=== PATIENT | female | born 1950 | race Caucasian/White ===

== ENCOUNTER 2016-08-01 13:47 | Emergency (ER) | payer OTHER ==
[2016-08-01 13:57] VITALS: BP 118/53; PULSE 90; TEMP 97.9; BMI 23.6
--- NOTE | 2016-08-01 14:24 | PDOC ---
History of Present Illness - General Chief Complaint: Injury Stated Complaint: COUGH, RT ABD PAIN Time Seen by Provider: 08/01/16 14:01 - History of Present Illness Initial Comments: 08/01/16 14:17 CHIEF COMPLAINT: pain to R rib when coughing HISTORY OF PRESENT ILLNESS: 66 yo F with hx of panic attack, anxiety, and depression presents to ED with pain to right rib when coughing x 2 weeks. Patient states she was "getting up from sitting against the wall" two weeks ago when she "must not have seen something behind me, and I tripped and fell on my right side." Over the past two weeks she has had progessively worsening pain to her right side and pain whenever she coughs. Patient denies any fever, nausea, vomiting, diarrhea, chest pain, shortness of breath, or URI symptoms. No recent travel or sick contacts. PAST MEDICAL HISTORY: Denies past medical history FAMILY HISTORY: Denies SOCIAL HISTORY: Current smoker, 1/2 pack daily. 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 Denies illicit drug use. SURGICAL HISTORY: Denies ALLERGIES: gluten, percocet/oxycodone (itch) REVIEW OF SYSTEMS General/Constitutional: Denies fever or chills. Denies weakness, weight change. HEENT: Denies change in vision. Denies ear pain or discharge. Denies sore throat. Cardiovascular: Denies chest pain or shortness of breath. Respiratory: Denies cough, wheezing, or hemoptysis. Gastrointestinal: Denies nausea, vomiting, diarrhea or constipation. Denies rectal bleeding. Genitourinary: Denies dysuria, frequency, or change in urination. Musculoskeletal: Pain to lower R rib when coughing. Denies joint or muscle swelling or pain. Denies neck or back pain. Skin and breasts: Denies rash or easy bruising. Neurologic: Denies headache, vertigo, loss of consciousness, or loss of sensation. PHYSICAL EXAM General Appearance: Well-appearing, appropriately dressed. No apparent distress , no intoxication. HEENT: EOMI, PERRLA, normal ENT inspection, normal voice, TMs normal, pharynx normal. No conjunctival pallor. No photophobia, scleral icterus. Neck: Supple. Trachea midline. No tenderness, rigidity, carotid bruit, stridor , lymphadenopathy, or thyromegaly. Respiratory/Chest: Lungs CTAB. No shortness of breath, chest tenderness, respiratory distress, accessory muscle use. No crackles, rales, rhonchi, stridor , wheezing, dullness Cardiovascular: RRR. S1, S2. Musculoskeletal/Extremities: Minimal pain to R shoulder elicited with Neer/ Hawkin's tests. Normal inspection. FROM of all extremities, normal capillary refill. Pelvis Stable. No CVA tenderness. No tenderness to extremities, pedal edema, swelling, erythema or deformity. Integumentary: Appropriate color, dry, warm. 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 Fully oriented, alert. Appropriate mood/affect. Motor strength 5/5. No appreciable EOM palsy, facial droop or sensory deficit. Past History - Past Medical History Allergies/Adverse Reactions: Allergies Allergy/AdvReac Type Severity Reaction Status Date / Time gluten AdvReac Intermediate Verified 08/01/16 13:55 Home Medications: Ambulatory Orders Clonazepam [Klonopin] 1 mg PO DAILY 11/04/15 Mirtazapine [Remeron -] 45 mg PO HS 11/04/15 Venlafaxine HCl [Effexor -] 100 mg PO DAILY 11/04/15 Naproxen 250 mg PO BID #14 tablet 08/01/16 GI Disorders: Yes (CELIAC DISEASE) Psychiatric Problems: Yes (DEPRESSION,ANXIETY,PANIC ATTACKS) - Immunization History Immunization Up to Date: Yes - Psycho/Social/Smoking Cessation Hx Anxiety: Yes Suicidal Ideation: No Smoking Status: Yes Smoking History: Current every day smoker Have you smoked in the past 12 months: Yes Number of Cigarettes Smoked Daily: 10 Information on smoking cessation initiated: No Hx Alcohol Use: No Drug/Substance Use Hx: No *Physical Exam - Vital Signs Last Vital Signs Temp Pulse Resp BP Pulse Ox 97.9 F 90 20 118/53 97 08/01/16 13:55 08/01/16 13:55 08/01/16 13:55 08/01/16 13:55 08/01/16 13:55 ED Treatment Course - RADIOLOGY Radiology Studies Ordered: Category Date Time Status RIBS RIGHT SIDE [RAD] Stat Radiology 08/01/16 14:16 Ordered Medical Decision Making - Medical Decision Making 08/01/16 15:00 66 yo F with hx of anxiety, depression, panic attacks presents to fast track with pain to R rib when coughing s/p fall two weeks ago. -R rib x-ray Patient subsequently complains of right shoulder pain x "months", denies any trauma or specific incident prior to start of symptoms. Patient has full ROM shoulder, although minimal pain to distal elicited with Neer/Hawkin's test. Possible shoulder impingement. -Naproxen 250 po BID X-ray results: No acute pathology. Read by Kelton Ospina MD Advised patient to take medication as prescribed and follow up with ortho for further evaluation and management of rib and shoulder pain. Advised patient of signs and symptoms for return to ER; patient verbalized understanding and agrees to plan. *DC/Admit/Observation/Transfer Diagnosis at time of Disposition: Rib pain on right side Shoulder pain, acute Qualifiers: Laterality: right Qualified Code(s): M25.511 - Pain in right shoulder - Discharge Dispostion Disposition: HOME Condition at time of disposition: Stable Admit: No - Prescriptions Prescriptions: Naproxen 250 mg PO BID #14 tablet - Patient Instructions Printed Discharge Instructions: DI for Shoulder Pain Additional Instructions: Please take medication as prescribed and follow up with orthopedics on Thursday. If you experience any chest pain, shortness of breath, dizziness, headache, vomiting, fever, diarrhea, inability to move your arm or shoulder, or any new or worsening symptoms, please return to the ER.
== END 2016-08-01 15:16 | disposition home or self-care (01) ==
LOC: JERFT 13:47
DX: R07.81 Pleurodynia (principal); M25.511 Pain in right shoulder; W18.09XA Striking against other object with subsequent fall, initial encounter; Y93.89 Activity, other specified; Y92.89 Other specified places as the place of occurrence of the external cause; F41.9 Anxiety disorder, unspecified; F41.0 Panic disorder [episodic paroxysmal anxiety]
CPT/HCPCS: 71101-TC-RT; 99281-25

== ENCOUNTER 2017-11-15 00:13 | Emergency (ER) | payer OTHER, MEDICARE ==
[2017-11-15 00:32] VITALS: BP 139/114; PULSE 61; TEMP 97.4; BMI 22.1
--- NOTE | 2017-11-15 01:29 | PDOC ---
History of Present Illness - General Chief Complaint: Urinary Problem Stated Complaint: BLADDER ISSUE Time Seen by Provider: 11/15/17 01:29 - History of Present Illness Initial Comments: 11/15/17 02:05 Ms. Licona is a 67 yo female w/ pmh of panick attacks, anxiety, and depression who presents for evaluation of 2 month history of urinary incontinence. She reports she has had this intermittently over this time period and that she had an excessively large instance of this this evening. Ms. Licona further reports some non-specific pelvic pain that she says has been associated with this. Ms. Licona also endorses drinking several [place] iced teas tonight. The patient denies chest pain, shortness of breath, headache and dizziness. Denies fever, chills, nausea, vomit, diarrhea and constipation. Allergies: NKDA Past History - Past Medical History Allergies/Adverse Reactions: Allergies Allergy/AdvReac Type Severity Reaction Status Date / Time gluten AdvReac Intermediate Verified 11/15/17 00:27 Home Medications: Ambulatory Orders Clonazepam [Klonopin] 1 mg PO DAILY 11/04/15 Mirtazapine [Remeron -] 45 mg PO HS 11/04/15 Venlafaxine HCl [Effexor -] 100 mg PO DAILY 11/04/15 Naproxen 250 mg PO BID #14 tablet 08/01/16 GI Disorders: Yes (CELIAC DISEASE) Psychiatric Problems: Yes (DEPRESSION,ANXIETY,PANIC ATTACKS) - Immunization History Immunization Up to Date: Yes - Suicide/Smoking/Psychosocial Hx Smoking Status: Yes Smoking History: Never smoked Have you smoked in the past 12 months: No Number of Cigarettes Smoked Daily: 10 Information on smoking cessation initiated: No Hx Alcohol Use: No Drug/Substance Use Hx: No Review of Systems - Review of Systems Comments:: 11/15/17 03:06 Unable to obtain further due to intoxication symptoms. *Physical Exam - Vital Signs Last Vital Signs Temp Pulse Resp BP Pulse Ox 97.4 F L 61 19 139/114 98 11/15/17 00:27 11/15/17 00:27 11/15/17 00:27 11/15/17 00:27 11/15/17 00:27 - Physical Exam Comments: 11/15/17 03:07 GENERAL: +Patient slurring speech and acutely intoxicated. Otherwise awake, alert, and oriented x3, in no acute distress HEAD: No signs of trauma, normocephalic, atraumatic EYES: PERRLA, EOMI, sclera anicteric, conjunctiva clear ENT: Auricles normal inspection, hearing grossly normal, nares patent, oropharynx clear without exudates. Moist mucosa NECK: Normal ROM, supple, no lymphadenopathy, JVD, or masses LUNGS: No distress, speaks full sentences, clear to auscultation bilaterally HEART: Regular rate and rhythm, normal S1 and S2, no murmurs, rubs or gallops, peripheral pulses normal and equal bilaterally. ABDOMEN: Soft, nontender, normoactive bowel sounds. No guarding, no rebound. No masses EXTREMITIES: Normal inspection, Normal range of motion, no edema. No clubbing or cyanosis. NEUROLOGICAL: Cranial nerves II through XII grossly intact. Normal speech, normal gait, no focal sensorimotor deficits SKIN: Warm, Dry, normal turgor, no rashes or lesions noted. : +Fundal tenderness to palpation. No CMT, no adnexal tenderness. No blood noted in vaginal vault. ED Treatment Course - LABORATORY CBC & Chemistry Diagram: 11/15/17 03:00 11/15/17 03:00 Medical Decision Making - Medical Decision Making 11/15/17 04:17 Ms. Licona is a 67 yo female w/ pmh as described who presents for evaluation of urinary incontinence x2 months. Patient noted to be acutely intoxicated on presentation (confirmed on labs as below). No concern for acute process at this time however patient will be observed in ER until clinical sobriety appreciated. 11/15/17 05:20 ED Short Stay Obs order placed. 11/15/17 05:46 Patient noted to be at baseline by son. Gait steady, patient able to ambulate vigorously around ER. Discharging to home with urology follow-up. Laboratory Results - last 24 hr 11/15/17 11/15/17 11/15/17 02:41 03:00 03:00 WBC 4.2 RBC 4.19 Hgb 13.6 Hct 40.2 MCV 96.0 MCH 32.6 MCHC 33.9 RDW 12.7 Plt Count 223 MPV 7.8 Absolute Neuts (auto) 2.0 Neutrophils % 46.5 Lymphocytes % 40.7 H Monocytes % 9.2 Eosinophils % 2.8 Basophils % 0.8 Nucleated RBC % 0 Sodium 143 Potassium 3.8 Chloride 108 H Carbon Dioxide 30 Anion Gap 5 L BUN 13 Creatinine 1.1 H Creat Clearance w eGFR 49.54 Random Glucose 86 Calcium 7.8 L Total Bilirubin 0.3 AST 22 ALT 29 Alkaline Phosphatase 105 Total Protein 6.1 L Albumin 3.2 L Urine Color Straw Urine Appearance Clear Urine pH 6.0 Ur Specific Conde 1.002 Urine Protein Negative Urine Glucose (UA) Negative Urine Ketones Negative Urine Blood Negative Urine Nitrite Negative Urine Bilirubin Negative Urine Urobilinogen Negative Ur Leukocyte Esterase Negative Alcohol, Quantitative 199.6 H* *DC/Admit/Observation/Transfer Diagnosis at time of Disposition: Intoxication Incontinence Qualifiers: Incontinence type: urinary Urinary Incontinence type: unspecified incontinence Qualified Code(s): R32 - Unspecified urinary incontinence - Discharge Dispostion Disposition: HOME Decision to Admit order: Yes - Referrals Referrals: Justyn Riggs MD [Primary Care Provider] - Joey Campbell MD [Staff Physician] - - Patient Instructions Printed Discharge Instructions: DI for Urinary Incontinence Additional Instructions: Please follow-up with Urology later this week using provided contact information. Return to ER if any pain, fever, chills, or other concerning symptoms. - Post Discharge Activity
[2017-11-15 02:56] LABS: URINE APPEARANCE CLEAR; URINE BILIRUBIN NEGATIVE (<2.0 mg/dL); URINE COLOR STRAW; URINE GLUCOSE (UA) NEGATIVE (NEGATIVE); URINE KETONE NEGATIVE (NEGATIVE); URINE LEUK ESTERASE NEGATIVE (NEGATIVE); URINE NITRITE NEGATIVE (NEGATIVE); URINE PROTEIN NEGATIVE (NEGATIVE); URINE UROBILINOGEN NEGATIVE mg/dL (0.2-1.0)
[2017-11-15 03:11] LABS: BASO % 0.8 % (0-2.0); EOS % 2.8 % (0-4.5); HEMATOCRIT 40.2 % (32.4-45.2); HEMOGLOBIN 13.6 GM/dL (10.7-15.3); LYMPH % 40.7 % (8-40); MCH 32.6 pg (25.7-33.7); MCHC 33.9 g/dl (32.0-36.0); MEAN PLT VOLUME 7.8 fl (7.5-11.1); MONO % 9.2 % (3.8-10.2); NEUT % 46.5 % (42.8-82.8); PLATELET COUNT 223 K/MM3 (134-434); RBC 4.19 M/mm3 (3.60-5.2); RDW 12.7 % (11.6-15.6); WHITE BLOOD COUNT 4.2 K/mm3 (4.0-10.0)
[2017-11-15 03:32] LABS: ALBUMIN 3.2 g/dl (3.4-5.0); ALK PHOS 105 U/L (45-117); ANION GAP 5 (8-16); BILIRUBIN,TOTAL 0.3 mg/dL (0.2-1.0); BLOOD UREA NITROGEN 13 mg/dL (7-18); CALCIUM 7.8 mg/dL (8.5-10.1); CHLORIDE 108 mmol/L (98-107); CO2 30 mmol/L (21-32); CREATININE 1.1 mg/dL (0.55-1.02); GLUCOSE,RANDOM 86 mg/dL (74-106); POTASSIUM 3.8 mmol/L (3.5-5.1); SGOT/AST 22 U/L (15-37); SGPT/ALT 29 U/L (12-78); SODIUM 143 mmol/L (136-145); TOT PROT 6.1 g/dl (6.4-8.2)
--- NOTE | 2017-11-15 06:03 | PDOC ---
Attending Attestation - Resident Resident Name: Harsha Diez - ED Attending Attestation I have performed the following: I have examined & evaluated the patient, The case was reviewed & discussed with the resident, I agree w/resident's findings & plan, Exceptions are as noted - HPI HPI: 11/15/17 06:01 Patient is a 67 year old female with a significant past medical history of celiac disease, panic attacks, anxiety, and depression, who presents to the ED with complaints of urinary incontinence that began 2 months ago. Patient reports experiencing intermittent urinary incontinence as well as associated urinary frequency. Pt has had no change in severity of these symptoms tonight but presented to "get to the bottom of it." She reports going to see her PCP earlier this month but did not discuss these symptoms. Denies back pain, LE weakness or numbness. States she can feel toilet paper when she wipes. Denies trauma or falls. Patient admits to drinking alcohol prior to ED arrival. Pt notably cursing at staff members demanding that we figure out what's causing her urinary symptoms. Family states patient is currently at her baseline. Denies chest pain, Sob. Denies nausea, vomiting. Denies weakness/numbness. Denies fevers,chills. Denies dysuria, hematuria. Denies constipation, diarrhea. Denies any other symptoms. Allergies: Gluten. Social history: No smoking. Frequent etoh but won't quantify. No illicit drugs. Surgical history: None PMD: Dr. Yoel Riggs - Physicial Exam PE: 11/15/17 06:17 GENERAL: Awake, alert, and fully oriented, in no acute distress. +AOB HEAD: No signs of trauma EYES: PERRLA, EOMI, sclera anicteric, conjunctiva clear ENT: Auricles normal inspection, hearing grossly normal, nares patent, oropharynx clear without exudates. Moist mucosa NECK: Normal ROM, supple, no lymphadenopathy, JVD, or masses LUNGS: Breath sounds equal, clear to auscultation bilaterally. No wheezes, and no crackles HEART: Regular rate and rhythm, normal S1 and S2, no murmurs, rubs or gallops ABDOMEN: Soft, nontender, normoactive bowel sounds. No guarding, no rebound. No masses. No CVAT. EXTREMITIES: Normal range of motion, no edema. No clubbing or cyanosis. No cords, erythema, or tenderness NEUROLOGICAL: Normal speech, cranial nerves intact, negative pronator drift, 5/ 5 strength in all 4 extremities, normal sensation to light touch in all 4 extremities, normal cerebellar exam, normal gait, normal reflexes and tone SKIN: Warm, Dry, normal turgor, no rashes or lesions noted. - Medical Decision Making 11/15/17 03:18 67yo F presents to the ED with 2 months of intermittent urinary frequency and incontinence. Vitals initially with hypertension, on my repeat on exam, BP was 148/82. Exam unremarkable. Duration of sxs as well as stability make acute spinal cord pathology unlikely. Pt also has no back pain, LE weakness or sensory deficits. Reflexes wnl. Will check labs, UA, and allow pt to metabolize. 11/15/17 06:00 Pt awake, alert, ambulating in ED with steady gait. Appears clinically sober. Is cursing at staff for not "solving her problem." Pt had no episodes of incontinece during her 6 hour stay in the ED with multiple trips to the bathroom. Explained to patient that her work up including urinalysis was normal and that she must follow up with a urologist for further evaluation for her symptoms. She asked us to call her son so that he can pick her up. Called her son, who came to pick her up. Advised him to help her make an appointment with the urologist for work up. Confirmed that she was at her baseline mental status. Pt requesting DC home, son to drive her home. I discussed the physical exam findings, ancillary test results and final diagnoses with the patient. I answered all of the patient's questions. The patient felt comfortable with the discharge plan and treatment plan. The patient will call her primary care physician within 24 hours to arrange follow- up and will return to the Emergency Department with any new, persistent or worsening symptoms.
--- NOTE | 2017-11-17 07:16 | PDOC ---
Patient Follow-up (Call Back) - Post ED Follow - Up Disposition at time of original discharge: HOME Reason for Call Back: Abnwl. Microbiology (Urine culture preliminary shows lactose fermenting negative bacilli. colony count 20 to 30,000 CFU per mL. Patient currently on no antibiotics. UA was negative. Labs and vital signs within normal limits during ER visit. Will await final report.)
--- NOTE | 2017-11-18 07:32 | PDOC ---
Patient Follow-up (Call Back) - Post ED Follow - Up Disposition at time of original discharge: HOME Reason for Call Back: Abnwl. Microbiology ((+) urine culture. Sensitivity resulted. Left message for patient to call back.)
--- NOTE | 2017-11-18 07:39 | PDOC ---
Patient Follow-up (Call Back) - Post ED Follow - Up Disposition at time of original discharge: HOME Reason for Call Back: Abnwl. Microbiology Signs/Symptoms Improved: No - Disposition Rx Needed: Yes Additional Instructions/Notes: Patient states she does have sxs of UTI. Will send rx for keflex.
== END 2017-11-15 06:14 | disposition home or self-care (01) ==
LOC: JER 00:13 → UNDOADMOB 05:22 → JERBED 05:22 → JER 06:14
DX: F10.120 Alcohol abuse with intoxication, uncomplicated (principal); Y90.6 Blood alcohol level of 120-199 mg/100 ml; R32 Unspecified urinary incontinence; F41.0 Panic disorder [episodic paroxysmal anxiety]; F41.9 Anxiety disorder, unspecified; F32.9 Major depressive disorder, single episode, unspecified
CPT/HCPCS: 36415; 80053; 80307; 81003; 85025; 87086; 87186; 99282-25

== ENCOUNTER 2018-02-25 23:14 | Emergency (ER) | payer OTHER, MEDICARE ==
[2018-02-25 23:25] VITALS: BP 127/79; PULSE 71; TEMP 98; BMI 22.1
--- NOTE | 2018-02-25 23:26 | PDOC ---
History of Present Illness - General History Source: Patient, Family (Son.) Exam Limitations: No Limitations - History of Present Illness Initial Comments: 02/25/18 23:52 The patient is a 67 year old female, with a significant past medical history of panic attacks, anxiety, and depression, who presents to the emergency department s/p mechanical fall with, a laceration to the forehead. As per patient, she was on her way to bed when she felt dizzy, lost her balance, and fell hitting her head on the bedside table. She was able to ambulate without assistance s/p fall. The patient endorses drinking 1-2 drinks prior to her fall. She notes pain and bleeding to the affected area, prompting her visit to the ER. She denies any loss of consciousness, weakness, numbness, or trauma to the neck and extremities. She denies recent fevers or chills. She denies recent nausea, vomit, diarrhea or constipation. She denies recent dysuria, frequency, urgency or hematuria. She denies recent chest pain or shortness of breath. Allergies: Gluten. Past surgical history: None reported. Social history: Smoker (1/2 pack per day). Frequent drinking (every other day). Denies recreational drug use. Primary Care Physician: Dr. Jarred Riggs <Siobhan Chiu - Last Filed: 02/25/18 23:52> <Ericka Collazo - Last Filed: 02/26/18 04:12> - General Chief Complaint: Laceration Stated Complaint: FOREHEAD LACERATION Time Seen by Provider: 02/25/18 23:17 Past History <Siobhan Chiu - Last Filed: 02/25/18 23:52> - Past Medical History COPD: No GI Disorders: Yes (CELIAC DISEASE) Psychiatric Problems: Yes (DEPRESSION,ANXIETY,PANIC ATTACKS) Other medical history: ALCOHOLISM - Immunization History Immunization Up to Date: Yes - Suicide/Smoking/Psychosocial Hx Smoking Status: Yes Smoking History: Current every day smoker Have you smoked in the past 12 months: Yes Number of Cigarettes Smoked Daily: 20 Information on smoking cessation initiated: Yes 'Breaking Loose' booklet given: 02/25/18 Hx Alcohol Use: Yes Drug/Substance Use Hx: No Substance Use Type: Alcohol <Ericka Collazo - Last Filed: 02/26/18 04:12> - Past Medical History Allergies/Adverse Reactions: Allergies Allergy/AdvReac Type Severity Reaction Status Date / Time gluten AdvReac Intermediate Verified 11/15/17 00:27 Home Medications: Ambulatory Orders Clonazepam [Klonopin] 1 mg PO DAILY 11/04/15 Mirtazapine [Remeron -] 45 mg PO HS 11/04/15 Venlafaxine HCl [Effexor -] 100 mg PO DAILY 11/04/15 Naproxen 250 mg PO BID #14 tablet 08/01/16 Cephalexin Monohydrate [Keflex -] 500 mg PO BID #10 capsule 11/18/17 Review of Systems - Review of Systems Able to Perform ROS?: Yes Comments:: 02/25/18 23:52 CONSTITUTIONAL: Absent: fever, no chills, no fatigue EYES: Absent: visual changes ENT: Absent: ear pain, no sore throat CARDIOVASCULAR: Absent: chest pain, no palpitations RESPIRATORY: Absent: cough, no SOB GI: Absent: abdominal pain, no nausea, no vomiting, no constipation, no diarrhea GENITOURINARY: Absent: dysuria, no frequency, no hematuria MUSKULOSKELETAL: Absent: back pain, no arthralgia, no myalgia SKIN: Present: Laceration with pain to the forehead. Absent: rash NEURO: Present: Dizziness at the time of the fall. All Other Systems: Reviewed and Negative <Siobhan Chiu - Last Filed: 02/25/18 23:52> *Physical Exam - Vital Signs Last Vital Signs Temp Pulse Resp BP Pulse Ox 98 F 71 16 127/79 95 02/25/18 23:18 02/25/18 23:18 02/25/18 23:18 02/25/18 23:18 02/25/18 23:18 - Physical Exam Comments: 02/25/18 23:52 +GENERAL: Intoxicated with slight slurring of speech. The patient is awake, alert, and oriented, in no acute distress. +HEAD:4.5 linear vertical full thickness laceration of midline forehead with mild frontal tenderness. No other scalp tenderness or laceration. Remainder of facial exam normal without any other tenderness, edema, or deformity. EYES: Pupils 2 mm equal, round and reactive to light, extraocular movements intact, sclera anicteric, conjunctiva clear with no pallor. ENT: Ears normal, nares patent, oropharynx clear without exudates. Moist mucous membranes. NECK: Normal range of motion, supple without lymphadenopathy, JVD, or masses. LUNGS: Breath sounds equal, clear to auscultation bilaterally. No wheeze/ crackles. HEART: Regular rate and rhythm, normal S1 and S2 without murmur or rub. ABDOMEN: Soft/nontender/nondistended. BS wnl. No guarding or rebound. No palpable masses. No hepatosplenomegaly. EXTREMITIES: Normal range of motion, no edema. No clubbing or cyanosis. No cords, erythema, or tenderness. +NEUROLOGICAL: Mental status: Intoxicated. The patient is alert and oriented. Cranial nerves: Cranial nerves II through XII are intact Motor: The upper extremities are 5 over 5 in all muscle groups. The lower extremities are 5 over 5 in all muscle groups. No pronator drift. Sensation: Sensation is intact to light touch throughout. Cerebellar: Hkuimp-[id number] is normal in both upper extremities. Heel-knee- loving is normal in both lower extremities. Reflexes: 2+ and symmetric in the upper and lower extremities. PSYCH: Normal mood, normal affect. SKIN: Warm, Dry, normal turgor, no rashes or lesions noted. <Soibhan Chiu - Last Filed: 02/25/18 23:52> - Vital Signs Last Vital Signs Temp Pulse Resp BP Pulse Ox 98 F 71 16 127/79 95 02/25/18 23:18 02/25/18 23:18 02/25/18 23:18 02/25/18 23:18 02/25/18 23:18 <Ericka Collazo - Last Filed: 02/26/18 04:12> Procedures - Laceration/Wound Repair Frontal Wound Length: 2.6 to 5.0 cm Wound Explored: clean Wound's Depth, Shape: linear Irrigated w/ Saline: Yes Betadine Prep: No (Hibiclens/alcohol) Anesthesia: 1% Lidocaine Amount of Anesthetic (ccs): 2 Wound Debrided: none Wound Repaired With: Sutures Suture Size/Type: 6:0 Number of Sutures: 8 Layer Closure: No Sterile Dressing Applied: No Splint Applied: No Progress: Area vertical laceration in the mid forehead prepped using chlorhexidine/ ethanol solution and sterilely draped. Wound irrigated with 30 mL of sterile normal saline. 2 mL of 1% lidocaine infiltrated into the wound for local anesthesia. Wound edges were carefully apposed and wound closed with 8 interrupted sutures of 6-0 nylon. Bacitracin applied to the surface. Patient tolerated procedure well. <Ericka Collazo - Last Filed: 02/26/18 04:12> Progress Note - Progress Note Progress Note: Documentation has been prepared under my direction and personally reviewed by me in its entirety. I attest that this documented accurately reflects all work, treatment, procedures and medical decision making performed by me. <Ericka Collazo - Last Filed: 02/26/18 04:12> Medical Decision Making - Medical Decision Making As noted above, this 67-year-old woman with anxiety/depression presents with history of falling in her room as she was going to bed tonight just prior to presentation. Patient appears intoxicated on presentation and admits to having "1-2" drinks this evening (patient accompanied by her son, who explains that there was a small constitution party in the house to commemoration 50th anniversary of his parents wedding). No LOC noted. Patient complaining of pain in the area around the laceration. Exam as noted. Noncontrast CT of the head/facial bone/cervical spine performed to evaluate for acute injury. Interpretation by Imaging balance wheel motion inspector: No evidence of acute injury found. There was a small hypodensity in the deep white matter seen on head CT, potentially small vessel disease. Otherwise no fractures/contusion/bleed seen. Likewise, cervical spine study revealed degenerative changes without acute fracture/dislocation. Maxillofacial CT shows no evidence of acute fracture. There is trace gas adjacent to the left orbit, likely physiologic. Patient questioned regarding acute symptoms related to her left eye. Patient denies pain or any other abnormality related to her left eye. Repair of forehead laceration as noted above. Patient believes her most recent tetanus prophylaxis immunization was 7-10 years ago but would like a booster at this time. Boostrix IM administered. Patient discharged in the company of her son with instructions to keep her head elevated and to return to the ER if she experiences severe headache, nausea/ vomiting, lightheadedness. Meanwhile, she will keep the laceration as dry as possible for 2 days, then can wet the area briefly but no immersion until sutures out. Patient should have sutures removed in 5-7 days (patient will follow-up with her PMD, Dr. Riggs). The patient should return here or see Dr. Riggs if the wound appears red/swollen/ painful. <Ericka Collazo - Last Filed: 02/26/18 04:12> *DC/Admit/Observation/Transfer - Attestations Scribe Attestion: 02/25/18 23:53 Documentation prepared by Siobhan Chiu, acting as medical scheduler for Ericka Collazo MD. <Siobhan Chiu - Last Filed: 02/25/18 23:52> <Ericka Collazo - Last Filed: 02/26/18 04:12> Diagnosis at time of Disposition: Closed head injury Forehead laceration Qualifiers: Encounter type: initial encounter Qualified Code(s): S01.81XA - Laceration without foreign body of other part of head, initial encounter Forehead contusion Qualifiers: Encounter type: initial encounter Qualified Code(s): S00.83XA - Contusion of other part of head, initial encounter - Discharge Dispostion Disposition: HOME Condition at time of disposition: Stable - Referrals Referrals: Justyn Riggs MD [Primary Care Provider] - 1 week - Patient Instructions Printed Discharge Instructions: How to Care for a Laceration After Repair, DI for Closed Head Injury Additional Instructions: Keep head elevated as much as possible over the next 2 days Keep wound dry with bacitracin/Neosporin to surface daily After first 48 hours, can briefly wet area of the wound Return to ER immediately if you have severe headache/nausea/lightheadedness Return to ER if wound looks red/swollen or is more painful Tylenol as needed for pain for the next 2-3 days; can use Motrin/Aleve along with Tylenol Follow-up with Dr. Riggs or return here for suture removal 5-7 days - Post Discharge Activity
[2018-02-26] MEDS ORDERED: ACETAMINOPHEN 325 MG TABLET (FP) PO ONE (00:03)
[2018-02-26] MEDS ORDERED: ACETAMINOPHEN 325 MG TABLET (FP) ONE (00:03)
[2018-02-26] MEDS ORDERED: DIPHTH,PERTUSS(ACELL),TET 0.5 ML DISP.SYRIN IM ONE (01:45)
== END 2018-02-26 01:52 | disposition home or self-care (01) ==
LOC: FER 23:14 → SUPCPDRO 23:14 → FER 02-26 01:52
PROC: 0HQ1XZZ Repair Face Skin, External Approach (ICD-10-PCS; principal; 2018-02-25)
PROC: 3E0234Z Introduction of Serum, Toxoid and Vaccine into Muscle, Percutaneous Approach (ICD-10-PCS; 2018-02-25)
DX: S01.81XA Laceration without foreign body of other part of head, initial encounter (principal); S00.83XA Contusion of other part of head, initial encounter; W26.1XXA Contact with sword or dagger, initial encounter; Y93.89 Activity, other specified; Y92.003 Bedroom of unspecified non-institutional (private) residence as the place of occurrence of the external cause; F41.0 Panic disorder [episodic paroxysmal anxiety]; F41.9 Anxiety disorder, unspecified; F32.9 Major depressive disorder, single episode, unspecified; F17.210 Nicotine dependence, cigarettes, uncomplicated
CPT/HCPCS: 70450-TC; 70486-TC; 72125-TC; 90715; 99281-25

== ENCOUNTER 2018-03-04 12:38 | Emergency (ER) | payer OTHER, MEDICARE ==
[2018-03-04 12:43] VITALS: BP 141/87; PULSE 73; TEMP 98.1; BMI 21.9
--- NOTE | 2018-03-04 14:09 | PDOC ---
Suture Removal/Wound Check HPI - History of Present Illness Chief Complaint: Suture/Staple Removal(Here) Stated Complaint: SUTURE REMOVAL FOREHEAD Time Seen by Provider: 03/04/18 14:00 Past History - Past Medical History Allergies/Adverse Reactions: Allergies Allergy/AdvReac Type Severity Reaction Status Date / Time gluten AdvReac Intermediate Verified 03/04/18 12:39 Home Medications: Ambulatory Orders Clonazepam [Klonopin] 1 mg PO DAILY 11/04/15 Trazodone HCl 150 mg PO ASDIR 03/04/18 COPD: No CHF: No GI Disorders: Yes (CELIAC DISEASE) Psychiatric Problems: Yes (DEPRESSION,ANXIETY,PANIC ATTACKS) - Immunization History Immunization Up to Date: Yes - Suicide/Smoking/Psychosocial Hx Smoking Status: Yes Smoking History: Current every day smoker Have you smoked in the past 12 months: Yes Number of Cigarettes Smoked Daily: 10 Information on smoking cessation initiated: Yes 'Breaking Loose' booklet given: 03/04/18 Hx Alcohol Use: No Drug/Substance Use Hx: No Substance Use Type: Alcohol *Physical Exam - Vital Signs Last Vital Signs Temp Pulse Resp BP Pulse Ox 98.1 F 73 18 141/87 96 03/04/18 12:38 03/04/18 12:38 03/04/18 12:38 03/04/18 12:38 03/04/18 12:38 *DC/Admit/Observation/Transfer Diagnosis at time of Disposition: Visit for suture removal - Discharge Dispostion Disposition: HOME Condition at time of disposition: Improved Decision to Admit order: No - Referrals - Patient Instructions Printed Discharge Instructions: DI for Suture Removal - Post Discharge Activity
== END 2018-03-04 14:12 | disposition home or self-care (01) ==
LOC: FER 12:38
DX: Z48.02 Encounter for removal of sutures (principal)
CPT/HCPCS: 99281-25

== ENCOUNTER 2018-08-25 17:30 | Emergency (ER) | payer OTHER, MEDICARE ==
[2018-08-25 17:52] VITALS: BMI 21.4
--- NOTE | 2018-08-25 19:04 | PDOC ---
History of Present Illness - General Chief Complaint: Urinary Problem Stated Complaint: STOOLS UNCONTROL Time Seen by Provider: 08/25/18 18:11 History Source: Patient Exam Limitations: No Limitations - History of Present Illness Initial Comments: 08/25/18 18:38 68 yo female pmh anxiety, depression, intoxication and multiple ED visits for incontinence presents to the ED for incontinence. Pt states she has had an ongoing problem for over 1 year with regular loss of urine with cough and movement also admits to feeling the urge to urinate but is unable to make it to the bathroom. Pt states she has had large warren of urine more frequently recently. Pt saw Dr. Cantor in [facility] 4 months ago, did not mention her difficulty with incontinence but does admit to having a normal pelvic exam. Pt denies F/C/N/V, abdominal pain, vaginal pain/discharge, burning or blood on urination, CP, SOB or new back pain. Pt does admit to 1 year hx of bilateral lower back pain without weakness/numbness into lower ext, saddle anesthesia, incontinence or retention of stool, ambulates without difficulty however no imaging was done. Also, pt was referred to Urology for similar s/s however has not f/u. Past History - Past Medical History Allergies/Adverse Reactions: Allergies Allergy/AdvReac Type Severity Reaction Status Date / Time gluten AdvReac Intermediate Verified 08/25/18 17:50 Home Medications: Ambulatory Orders Clonazepam [Klonopin] 1 mg PO BID 11/04/15 Trazodone HCl 100 mg PO HS 03/04/18 COPD: No CHF: No GI Disorders: Yes (CELIAC DISEASE) Psychiatric Problems: Yes (DEPRESSION,ANXIETY,PANIC ATTACKS) - Immunization History Immunization Up to Date: Yes - Suicide/Smoking/Psychosocial Hx Smoking Status: Yes Smoking History: Never smoked Have you smoked in the past 12 months: Yes Number of Cigarettes Smoked Daily: 10 Information on smoking cessation initiated: No 'Breaking Loose' booklet given: 03/04/18 Hx Alcohol Use: No Drug/Substance Use Hx: No Substance Use Type: Alcohol Review of Systems - Review of Systems Constitutional: No: Chills, Fever Respiratory: No: Shortness of Breath Cardiac (ROS): No: Chest Pain, Edema ABD/GI: No: Constipated, Diarrhea, Nausea, Vomiting : Yes: Incontinence. No: Burning, Dysuria, Discharge, Frequency, Flank Pain, Hematuria, Pain Musculoskeletal: Yes: Back Pain (over 1 year , no imaging done). No: Muscle Weakness Neurological: No: Headache, Numbness, Paresthesia *Physical Exam - Vital Signs Last Vital Signs Temp Pulse Resp BP Pulse Ox 97.9 F 67 17 126/73 95 08/25/18 17:50 08/25/18 17:50 08/25/18 17:50 08/25/18 17:50 08/25/18 17:50 - Physical Exam General Appearance: Yes: Nourished, Appropriately Dressed. No: Apparent Distress HEENT: positive: EOMI, LISA, Normal Voice, Hearing Grossly Normal Neck: positive: Supple. negative: Tender, Carotid bruit, Tender midline Respiratory/Chest: positive: Lungs Clear, Normal Breath Sounds. negative: Accessory Muscle Use, Rapid RR, Crackles, Rales, Rhonchi, Stridor, Wheezing Cardiovascular: positive: Regular Rhythm, Regular Rate, S1, S2. negative: Edema , JVD, Murmur Vascular Pulses: Dorsalis-Pedis (R): 4+, Doralis-Pedis (L): 4+ Gastrointestinal/Abdominal: positive: Flat, Soft. negative: Pulsatile Mass, Guarding, Rebound, Tenderness Rectal Exam: positive: normal exam, normal rectal tone. negative: hemorrhoids Musculoskeletal: positive: Normal Inspection. negative: CVA Tenderness Extremity: positive: Normal Capillary Refill, Normal Inspection, Normal Range of Motion, Pelvis Stable Integumentary: positive: Normal Color, Dry, Warm. negative: Petechiae, Rash, Ecchymosis, Bruising Neurologic: positive: handkerchief cutter II-XII NML intact, Fully Oriented, Alert, Normal Mood/ Affect, Normal Response, Motor Strength 5/5. negative: Numbness, Sensory Deficit, Confused, Disoriented Deep Tendon Reflexes: Ankle (L): 2+, Ankle (R): 2+, Knee (L): 2+, Knee (R): 2+ ED Treatment Course - LABORATORY CBC & Chemistry Diagram: 08/25/18 20:29 08/25/18 20:29 Medical Decision Making - Medical Decision Making 08/25/18 19:49 68 yo female pmh anxiety, depression, intoxication and multiple ED visits for incontinence presents to the ED for incontinence. Pt states she has had an ongoing problem for over 1 year with regular loss of urine with cough and movement also admits to feeling the urge to urinate but is unable to make it to the bathroom. Pt states she has had large warren of urine more frequently recently. Pt saw Dr. Cantor in [facility] 4 months ago, did not mention her difficulty with incontinence but does admit to having a normal pelvic exam. Pt denies F/C/N/V, abdominal pain, vaginal pain/discharge, burning or blood on urination, CP, SOB or new back pain. Pt does admit to 1 year hx of bilateral lower back pain without weakness/numbness into lower ext, saddle anesthesia, incontinence or retention of stool, ambulates without difficulty however no imaging was done. Also, pt was referred to Urology for similar s/s however has not f/u. Chart review from 11/15/2017 shows very similar complaint without imaging at the time, Urology f/u given but not done AOX3, NAD, non toxic appearing See physical exam No neurological deficits appreciated on exam, no risk factors for epidural abscess however, due to back pain without imaging and complaints of complete incontinence, MRI with contrast ordered to r/o spinal cord impingement or epidural abscess Vitals wnl CBC and CMP wnl UA shows minor elevation LE, will dc with a call back for antibiotics if cultures are positive MRI negative for spinal cord impingement or epidural abscess but shows likely arthritic changes Pt is stable and safe for DC home F/U with OB and Urology given. Pt understands plan *DC/Admit/Observation/Transfer Diagnosis at time of Disposition: Incontinence Qualifiers: Incontinence type: urinary Urinary Incontinence type: unspecified incontinence Qualified Code(s): R32 - Unspecified urinary incontinence - Discharge Dispostion Disposition: HOME Condition at time of disposition: Stable Decision to Admit order: No - Referrals Referrals: Justyn Riggs MD [Primary Care Provider] - Teddy Valdivia MD [Staff Physician] - Jyoti Cantor MD [Staff Physician] - - Patient Instructions Printed Discharge Instructions: DI for Urinary Incontinence Additional Instructions: Please see your Primary Doctor within the next 48 hours. See your [facility] Doctor and make an appointment with Urology as soon as possible for your complaints of incontinence. Return to the ER for new or concerning symptoms including but not limited to: high fevers, numbness/tingling or weakness into the legs, severe back pain. Your urine culture results are pending, if they return positive, you will receive a call and will get a prescription for antibiotics. Thank you - Post Discharge Activity
--- NOTE | 2018-08-25 19:29 | PDOC ---
Attending Attestation - HPI HPI: 08/25/18 19:37 The patient is a 68 year old female with a significant PMH of anxiety, depression, and EtOH abuse who presents to the emergency department with back pain and urinary incontinence for the past year. Patient states she gets the urge to use the bathroom, but as soon as she tried to go to the bathroom she experiences incontinence. Patient notes that today she had a large amount of urinary incontinence prompting her to come to the ER. Patient follows with an [facility], Dr. Cantor, but she did not mention these symptoms to her. Patient denies any pelvic pain, abdominal pain, chest pain, shortness of breath , headache and dizziness. Denies fever, chills, nausea, vomit, diarrhea and constipation. Denies dysuria, frequency, urgency and hematuria. Allergies: NKA Past surgical history: None reported. Social history: No reported drug or cigarette use. EtOH abuse. PCP: Dr. Justyn Riggs - Physicial Exam PE: 08/25/18 20:13 Agree with resident's exam. <Aracely Nunes - Last Filed: 08/25/18 20:13> - Resident Resident Name: Campbell Benavidez - ED Attending Attestation I have performed the following: I have examined & evaluated the patient, The case was reviewed & discussed with the resident, I agree w/resident's findings & plan - Medical Decision Making 08/25/18 20:33 68-year-old female complaining of worsening urinary incontinence with accompanying low back pain Patient has not had evaluation of her back pain in the past She denies trauma or fever Due to worsening symptoms and lack of previous imaging and MRI of the lumbar spine has been ordered to rule out cauda equina syndrome versus unlikely epidural abscess Patient is otherwise motor intact <Padmini Chacon - Last Filed: 08/25/18 20:34>
[2018-08-25 20:44] LABS: HEMATOCRIT 41.6 % (32.4-45.2); HEMOGLOBIN 14.3 GM/dL (10.7-15.3); MCH 33.4 pg (25.7-33.7); MCHC 34.3 g/dl (32.0-36.0); MEAN CELL VOLUME 97.3 fl (80-96); MEAN PLT VOLUME 7.7 fl (7.5-11.1); PLATELET COUNT 250 K/MM3 (134-434); RBC 4.28 M/mm3 (3.60-5.2); RDW 13.3 % (11.6-15.6); WHITE BLOOD COUNT 5.1 K/mm3 (4.0-10.0)
[2018-08-25 21:17] LABS: ALBUMIN 3.3 g/dl (3.4-5.0); ALK PHOS 117 U/L (45-117); ANION GAP 8 MMOL/L (8-16); BILIRUBIN,TOTAL 0.3 mg/dL (0.2-1); BLOOD UREA NITROGEN 12 mg/dL (7-18); CALCIUM 8.2 mg/dL (8.5-10.1); CHLORIDE 111 mmol/L (98-107); CO2 24 mmol/L (21-32); CREATININE 0.8 mg/dL (0.55-1.3); GLUCOSE,RANDOM 91 mg/dL (74-106); SGOT/AST 16 U/L (15-37); SGPT/ALT 26 U/L (13-61); SODIUM 143 mmol/L (136-145); TOT PROT 6.4 g/dl (6.4-8.2)
[2018-08-25 22:02] LABS: EPI CELLS 3.7 /HPF (0-5); URINE APPEARANCE CLEAR; URINE BACTERIA 288.2 /hpf (NEGATIVE); URINE BILIRUBIN NEGATIVE (NEGATIVE); URINE CASTS 1 /hpf (0-8); URINE COLOR YELLOW; URINE GLUCOSE (UA) NEGATIVE (NEGATIVE); URINE KETONE NEGATIVE (NEGATIVE); URINE LEUK ESTERASE 1+ (NEGATIVE); URINE NITRITE NEGATIVE (NEGATIVE); URINE PROTEIN NEGATIVE (NEGATIVE); URINE RBC 1 /hpf (0-4); URINE UROBILINOGEN 0.2 mg/dL (0.2-1.0); URINE WBC 16 /hpf (0-5)
[2018-08-25 23:06] VITALS: BP 130/68; PULSE 72; TEMP 98.1
== END 2018-08-25 23:26 | disposition home or self-care (01) ==
LOC: JER 17:30
DX: R32 Unspecified urinary incontinence (principal); F41.8 Other specified anxiety disorders
CPT/HCPCS: 36415; 72158-TC; 80053; 81003; 85027; 87086; 87186; 99283-25

== ENCOUNTER → 2019-01-31 | Day surgery (SDC) | payer OTHER, MEDICARE ==
--- NOTE | 2019-02-01 16:36 | PATH ---
Cytology Non-Gynecological Report Patient Name: RHONA DIAZ [facility]. Rec. #: [id number] /Age/Gender: 1950 (Age: 68) / F Account: [id number] Location: RADIOLOGY INTER Taken: 01/31/2019 Received: 01/31/2019 Reported: 02/01/2019 Physicians: Kieran Mchugh M.D. Specimen(s) Received THYROID RIGHT LOBE FNA Clinical History Right lobe nodule, 1.32 x 1.3 x 1.52 cm Final Diagnosis THYROID, RIGHT LOBE, FINE NEEDLE ASPIRATION: SATISFACTORY FOR EVALUATION. BETHESDA CLASS II: BENIGN. CYTOLOGIC FINDINGS ARE CONSISTENT WITH A BENIGN FOLLICULAR NODULE. SMALL FOLLICULAR CELLS AND COLLOID PRESENT. Electronically Signed Saritha Grace M.D. Gross Description Received are eight direct smears, four of which are air-dried and Diff-Quik stained, and four of which are alcohol fixed and Pap stained. Also received is 20 ml of bloody formalin from which one cellblock is prepared.
== END | disposition home or self-care (01) ==
LOC: JRADIR 09:04
PROVIDERS: ATTEND Internal Medicine
PROC: 0G9H3ZX Drainage of Right Thyroid Gland Lobe, Percutaneous Approach, Diagnostic (ICD-10-PCS; principal; 2019-01-31)
DX: E04.1 Nontoxic single thyroid nodule (principal)
CPT/HCPCS: 76942; 88173; 88305-TC

== ENCOUNTER → 2019-02-09 | Day surgery (SDC) | payer OTHER, MEDICARE ==
--- NOTE | 2019-02-14 15:04 | PATH ---
Cytology Non-Gynecological Report Patient Name: RHONA DIAZ [facility]. Rec. #: [id number] /Age/Gender: 1950 (Age: 68) / F Account: [id number] Location: RADIOLOGY INTER Taken: 02/09/2019 Received: 02/09/2019 Reported: 02/14/2019 Physicians: Kieran Mchugh, KAMILLE Specimen(s) Received RIGHT LOBE THYROID FNA Clinical History Thyroid nodule Final Diagnosis THYROID, RIGHT, FINE NEEDLE ASPIRATION: SATISFACTORY FOR EVALUATION BETHESDA CLASS II: BENIGN BENIGN FOLLICULAR CELLS, ABUNDANT COLLOID, AND MACROPHAGES PRESENT. Electronically Signed Desiree Heredia M.D. Gross Description Received are eight direct smears, four of which are air-dried and Diff-Quik stained, and four of which are alcohol fixed and Pap stained. Also received is 20 ml of bloody formalin from which one cellblock is prepared.
== END | disposition home or self-care (01) ==
LOC: JRADIR 09:38
PROVIDERS: ATTEND Internal Medicine
PROC: 0GBH3ZX Excision of Right Thyroid Gland Lobe, Percutaneous Approach, Diagnostic (ICD-10-PCS; principal; 2019-02-09)
DX: E04.1 Nontoxic single thyroid nodule (principal)
CPT/HCPCS: 76942; 88173; 88305-TC

== ENCOUNTER 2020-08-04 07:31 | Inpatient (IN) | payer OTHER ==
[2020-08-04] MEDS ORDERED: DEXAMETHASONE SOD PHOSPHATE 4 MG/1 ML VIAL IVPUSH ONE (08:15)
[2020-08-04] MEDS ORDERED: ALBUTEROL SO4 2.5/IPRATROPIUM 0.5 INH SOL 3 ML VIAL.NEB. NEB ONE ×2 (08:15→09:58)
[2020-08-04 09:05] LABS: BASO % 1.1 % (0-2.0); EOS % 0.6 % (0-4.5); HEMATOCRIT 44.4 % (32.4-45.2); LYMPH % 13.5 % (8-40); MCH 31.9 pg (25.7-33.7); MCHC 33.9 g/dl (32.0-36.0); MEAN CELL VOLUME 94.1 fl (80-96); MEAN PLT VOLUME 8.6 fl (7.5-11.1); NEUT % 77.8 % (42.8-82.8); PLATELET COUNT 217 K/MM3 (134-434); RBC 4.71 M/mm3 (3.60-5.2); RDW 13.5 % (11.6-15.6); WHITE BLOOD COUNT 2.7 K/mm3 (4.0-10.0)
[2020-08-04 09:11] LABS: INR 0.96 (0.83-1.09); PROTHROMBIN TIME (PATIENT) 11.8 SEC (9.7-13.0)
[2020-08-04 09:14] LABS: ACTIVATED PTT 28.5 SECONDS (25.2-36.5); VENOUS BASE EXCESS -0.6 mmol/L (-2-2); VENOUS O2 SATURATION 26.9 % (70-80); VENOUS PH 7.34 (7.310-7.410)
[2020-08-04] MEDS ORDERED: CEFTRIAXONE 1,000 MG in DEXTROSE 5%-WATER - 50 ML IVPB ONE (09:39)
[2020-08-04] MEDS ORDERED: AZITHROMYCIN IVPB 500 MG in DEXTROSE 5%-WATER - 250 ML IVPB ONE (09:39)
[2020-08-04 09:49] LABS: CHLORIDE 105 mmol/L (98-107); POTASSIUM 4.3 mmol/L (3.5-5.1); SODIUM 137 mmol/L (136-145)
[2020-08-04 09:52] LABS: ANION GAP 4 MMOL/L (8-16); BLOOD UREA NITROGEN 19.1 mg/dL (7-18); CO2 28 mmol/L (21-32)
[2020-08-04 09:53] LABS: ALBUMIN 3.6 g/dl (3.4-5.0); CALCIUM 8.7 mg/dL (8.5-10.1); GLUCOSE,RANDOM 75 mg/dL (74-106)
[2020-08-04 09:55] LABS: BILIRUBIN,DIRECT 0.2 mg/dL (0.0-0.2); SGOT/AST 31 U/L (15-37); SGPT/ALT 23 U/L (13-61)
[2020-08-04 09:56] LABS: BILIRUBIN,TOTAL 0.5 mg/dL (0.2-1); LDH 319 U/L (84-246)
[2020-08-04 09:57] LABS: ALK PHOS 129 U/L (45-117)
[2020-08-04] MEDS ORDERED: AZITHROMYCIN IVPB 500 MG/250 ML BAG IVPB ONE (09:58)
[2020-08-04] MEDS ORDERED: CEFTRIAXONE 1 GM/50 ML BAG ONE (09:58)
[2020-08-04] MEDS ORDERED: DEXAMETHASONE SOD PHOSPHATE 4 MG/1 ML VIAL ONE (09:58)
[2020-08-04 10:42] LABS: PH,URINE 5.5 (5.0-8.0); URINE APPEARANCE Cloudy; URINE BILIRUBIN Negative (NEGATIVE); URINE COLOR Yellow; URINE GLUCOSE (UA) Negative (NEGATIVE); URINE KETONE Negative (NEGATIVE); URINE LEUK ESTERASE Trace (NEGATIVE); URINE NITRITE Positive (NEGATIVE); URINE PROTEIN Trace (NEGATIVE); URINE UROBILINOGEN 0.2 mg/dL (0.2-1.0)
[2020-08-04 10:44] LABS: EPI CELLS 16.8 /uL (0-25.1); HYALINE CASTS 15.18 /uL (0-3.1); URINE RBC 14.3 /uL (0-23.9); URINE WBC 351.1 /uL (0-25.8)
[2020-08-04] MEDS ORDERED: ALBUTEROL SO4 HFA INHALER IH PRN (13:17)
[2020-08-04] MEDS ORDERED: ACETAMINOPHEN 325 MG TABLET (FP) PO PRN (13:18)
[2020-08-04] MEDS ORDERED: MELATONIN 5 MG TABLETS PO ONE (22:02)
[2020-08-04] MEDS: FAMOTIDINE 20 MG/50 ML IVPB 20 MG/50 ML MG IVPB SCH (23:03)
[2020-08-04] MEDS: ASCORBIC ACID 500 MG TABLET (FP) PO SCH (23:03)
[2020-08-04 23:15] VITALS: BMI 21.6
[2020-08-05 07:59] LABS: BASO % 0.5 % (0-2.0); HEMATOCRIT 38.2 % (32.4-45.2); HEMOGLOBIN 13.3 GM/dL (10.7-15.3); LYMPH % 7.8 % (8-40); MCH 32.3 pg (25.7-33.7); MCHC 34.9 g/dl (32.0-36.0); MEAN CELL VOLUME 92.5 fl (80-96); MEAN PLT VOLUME 8.4 fl (7.5-11.1); MONO % 7.9 % (3.8-10.2); NEUT % 83.8 % (42.8-82.8); PLATELET COUNT 213 K/MM3 (134-434); RBC 4.13 M/mm3 (3.60-5.2); RDW 13.4 % (11.6-15.6); WHITE BLOOD COUNT 4.3 K/mm3 (4.0-10.0)
[2020-08-05 08:18] LABS: CALCIUM 8.8 mg/dL (8.5-10.1)
[2020-08-05 08:19] LABS: BLOOD UREA NITROGEN 22.2 mg/dL (7-18)
[2020-08-05 08:23] LABS: BILIRUBIN,TOTAL 0.4 mg/dL (0.2-1); TOT PROT 6.2 g/dl (6.4-8.2)
[2020-08-05 08:29] LABS: CREATININE 0.8 mg/dL (0.55-1.3)
[2020-08-05] MEDS ORDERED: PT OWN MED DRAWER 7, Y5N ONE (09:48)
[2020-08-05] MEDS: ASCORBIC ACID 500 MG TABLET (FP) PO SCH ×2 (09:53→22:27)
[2020-08-05] MEDS: CHOLECALCIFEROL (VIT D3) 5000 UNITS (125 MCG) CAP PO SCH (09:53)
[2020-08-05] MEDS: ZINC SULFATE 220 MG CAPSULE (FP) PO SCH (09:53)
[2020-08-05] MEDS: clonazePAM 0.5 MG TABLET PO PRN (09:54)
[2020-08-05] MEDS: FAMOTIDINE 20 MG/50 ML IVPB 20 MG/50 ML MG IVPB SCH ×2 (09:54→22:26)
[2020-08-05] MEDS: ENOXAPARIN NA (PORCINE) 40 MG/0.4 ML DISP.SYRIN SQ SCH (09:56)
[2020-08-05] MEDS: DEXAMETHASONE SOD PHOSPHATE 4 MG/1 ML VIAL IVPUSH SCH (09:56)
[2020-08-05] MEDS ORDERED: CEFTRIAXONE 1 GM in DEXTROSE 5%-WATER - 50 ML IVPB SCH (10:45)
[2020-08-05] MEDS ORDERED: DEXTROSE 5%-WATER - 50 ML IVPB ONE (11:16)
[2020-08-05] MEDS ORDERED: cefTRIAXone SODIUM 1 GM VIAL ONE (11:16)
[2020-08-05] MEDS: CEFTRIAXONE 1 GM in DEXTROSE 5%-WATER - 50 ML IVPB SCH (11:41)
[2020-08-05] MEDS ORDERED: REMDESIVIR 200 MG in SODIUM CHLORIDE 210 ML IVPB ONE (14:00)
[2020-08-05] MEDS: BUDESONIDE/FORMETEROL FUMARATE 160/4.5 mcg INHALER IH SCH ×2 (14:35→22:26)
[2020-08-06] MEDS ORDERED: MELATONIN 5 MG TABLETS PO ONE (00:03)
[2020-08-06 07:47] LABS: HEMATOCRIT 35.5 % (32.4-45.2); HEMOGLOBIN 12.5 GM/dL (10.7-15.3); MCH 33.4 pg (25.7-33.7); MCHC 35.3 g/dl (32.0-36.0); MEAN CELL VOLUME 94.5 fl (80-96); MEAN PLT VOLUME 8.5 fl (7.5-11.1); PLATELET COUNT 212 K/MM3 (134-434); RBC 3.76 M/mm3 (3.60-5.2); RDW 13.4 % (11.6-15.6); WHITE BLOOD COUNT 5.9 K/mm3 (4.0-10.0)
[2020-08-06 07:58] LABS: POTASSIUM 4.5 mmol/L (3.5-5.1)
[2020-08-06 08:02] LABS: CALCIUM 8.6 mg/dL (8.5-10.1)
[2020-08-06 08:03] LABS: BLOOD UREA NITROGEN 26.2 mg/dL (7-18)
[2020-08-06 08:06] LABS: CREATININE 0.8 mg/dL (0.55-1.3)
[2020-08-06 08:08] LABS: BILIRUBIN,TOTAL 0.4 mg/dL (0.2-1)
[2020-08-06] MEDS ORDERED: DEXTROSE 5%-WATER - 50 ML IVPB ONE (09:14)
[2020-08-06] MEDS ORDERED: cefTRIAXone SODIUM 1 GM VIAL ONE (09:14)
[2020-08-06] MEDS: ENOXAPARIN NA (PORCINE) 40 MG/0.4 ML DISP.SYRIN SQ SCH (09:22)
[2020-08-06] MEDS: CEFTRIAXONE 1 GM in DEXTROSE 5%-WATER - 50 ML IVPB SCH (09:22)
[2020-08-06] MEDS: ASCORBIC ACID 500 MG TABLET (FP) PO SCH ×2 (09:23→21:20)
[2020-08-06] MEDS: DEXAMETHASONE SOD PHOSPHATE 4 MG/1 ML VIAL IVPUSH SCH (09:23)
[2020-08-06] MEDS: ZINC SULFATE 220 MG CAPSULE (FP) PO SCH (09:23)
[2020-08-06] MEDS: FAMOTIDINE 20 MG/50 ML IVPB 20 MG/50 ML MG IVPB SCH ×2 (09:29→21:20)
[2020-08-06] MEDS: BUDESONIDE/FORMETEROL FUMARATE 160/4.5 mcg INHALER IH SCH ×2 (09:30→21:21)
[2020-08-06] MEDS: REMDESIVIR 100 MG in SODIUM CHLORIDE 230 ML IVPB SCH (10:34)
[2020-08-06] MEDS: clonazePAM 0.5 MG TABLET PO PRN (10:34)
[2020-08-06] MEDS ORDERED: PT OWN MED DRAWER 7, Y5N ONE (11:31)
[2020-08-06] MEDS: CHOLECALCIFEROL (VIT D3) 5000 UNITS (125 MCG) CAP PO SCH (13:09)
[2020-08-06] MEDS: traZODone HCL 50 MG TABLET (FP) PO SCH (21:20)
[2020-08-07] MEDS ORDERED: PT OWN MED DRAWER 7, Y5N ONE (09:01)
[2020-08-07] MEDS ORDERED: DEXTROSE 5%-WATER - 50 ML IVPB ONE (09:02)
[2020-08-07] MEDS ORDERED: cefTRIAXone SODIUM 1 GM VIAL ONE (09:02)
[2020-08-07] MEDS: ENOXAPARIN NA (PORCINE) 40 MG/0.4 ML DISP.SYRIN SQ SCH (09:11)
[2020-08-07] MEDS: ASCORBIC ACID 500 MG TABLET (FP) PO SCH ×2 (09:11→21:21)
[2020-08-07] MEDS: ZINC SULFATE 220 MG CAPSULE (FP) PO SCH (09:11)
[2020-08-07] MEDS: CHOLECALCIFEROL (VIT D3) 5000 UNITS (125 MCG) CAP PO SCH (09:11)
[2020-08-07] MEDS: CEFTRIAXONE 1 GM in DEXTROSE 5%-WATER - 50 ML IVPB SCH (09:11)
[2020-08-07] MEDS: FAMOTIDINE 20 MG/50 ML IVPB 20 MG/50 ML MG IVPB SCH ×2 (10:15→21:20)
[2020-08-07] MEDS: DEXAMETHASONE SOD PHOSPHATE 4 MG/1 ML VIAL IVPUSH SCH (10:16)
[2020-08-07] MEDS: BUDESONIDE/FORMETEROL FUMARATE 160/4.5 mcg INHALER IH SCH ×2 (10:17→21:21)
[2020-08-07] MEDS: REMDESIVIR 100 MG in SODIUM CHLORIDE 230 ML IVPB SCH (11:59)
[2020-08-07] MEDS: clonazePAM 0.5 MG TABLET PO PRN (16:05)
[2020-08-07] MEDS: traZODone HCL 50 MG TABLET (FP) PO SCH (21:20)
[2020-08-08] MEDS ORDERED: cefTRIAXone SODIUM 1 GM VIAL ONE (08:36)
[2020-08-08] MEDS ORDERED: DEXTROSE 5%-WATER - 50 ML IVPB ONE (08:36)
[2020-08-08] MEDS: CEFTRIAXONE 1 GM in DEXTROSE 5%-WATER - 50 ML IVPB SCH (08:41)
[2020-08-08 09:14] LABS: HEMATOCRIT 39.5 % (32.4-45.2); HEMOGLOBIN 13.6 GM/dL (10.7-15.3); MCH 31.8 pg (25.7-33.7); MCHC 34.3 g/dl (32.0-36.0); MEAN CELL VOLUME 92.6 fl (80-96); MEAN PLT VOLUME 8.7 fl (7.5-11.1); PLATELET COUNT 276 K/MM3 (134-434); RBC 4.27 M/mm3 (3.60-5.2); RDW 13.6 % (11.6-15.6); WHITE BLOOD COUNT 6.3 K/mm3 (4.0-10.0)
[2020-08-08 09:20] LABS: POTASSIUM 4.1 mmol/L (3.5-5.1)
[2020-08-08 09:29] LABS: ALBUMIN 3.3 g/dl (3.4-5.0); CALCIUM 8.8 mg/dL (8.5-10.1)
[2020-08-08] MEDS: DEXAMETHASONE SOD PHOSPHATE 4 MG/1 ML VIAL IVPUSH SCH (09:30)
[2020-08-08] MEDS: ZINC SULFATE 220 MG CAPSULE (FP) PO SCH (09:30)
[2020-08-08] MEDS: ASCORBIC ACID 500 MG TABLET (FP) PO SCH ×2 (09:30→22:54)
[2020-08-08] MEDS: CHOLECALCIFEROL (VIT D3) 5000 UNITS (125 MCG) CAP PO SCH (09:30)
[2020-08-08] MEDS: SENNOSIDES 8.6MG TABLET (FP) PO SCH ×2 (09:30→22:54)
[2020-08-08] MEDS: ENOXAPARIN NA (PORCINE) 40 MG/0.4 ML DISP.SYRIN SQ SCH (09:30)
[2020-08-08] MEDS: BUDESONIDE/FORMETEROL FUMARATE 160/4.5 mcg INHALER IH SCH ×2 (09:31→22:54)
[2020-08-08] MEDS: FAMOTIDINE 20 MG/50 ML IVPB 20 MG/50 ML MG IVPB SCH ×2 (09:31→22:54)
[2020-08-08 09:32] LABS: CREATININE 0.8 mg/dL (0.55-1.3)
[2020-08-08 09:33] LABS: BILIRUBIN,TOTAL 0.4 mg/dL (0.2-1); TOT PROT 6.4 g/dl (6.4-8.2)
[2020-08-08] MEDS: REMDESIVIR 100 MG in SODIUM CHLORIDE 230 ML IVPB SCH (10:55)
[2020-08-08] MEDS: clonazePAM 0.5 MG TABLET PO PRN (14:36)
[2020-08-08] MEDS: traZODone HCL 50 MG TABLET (FP) PO SCH (22:54)
[2020-08-09] MEDS ORDERED: DEXTROSE 5%-WATER - 50 ML IVPB ONE (08:39)
[2020-08-09] MEDS ORDERED: cefTRIAXone SODIUM 1 GM VIAL ONE (08:39)
[2020-08-09] MEDS: ZINC SULFATE 220 MG CAPSULE (FP) PO SCH (09:08)
[2020-08-09] MEDS: ENOXAPARIN NA (PORCINE) 40 MG/0.4 ML DISP.SYRIN SQ SCH (09:08)
[2020-08-09] MEDS: FAMOTIDINE 20 MG/50 ML IVPB 20 MG/50 ML MG IVPB SCH (09:08)
[2020-08-09] MEDS: DEXAMETHASONE SOD PHOSPHATE 4 MG/1 ML VIAL IVPUSH SCH (09:08)
[2020-08-09] MEDS: clonazePAM 0.5 MG TABLET PO PRN (09:08)
[2020-08-09] MEDS: SENNOSIDES 8.6MG TABLET (FP) PO SCH (09:08)
[2020-08-09] MEDS: ASCORBIC ACID 500 MG TABLET (FP) PO SCH (09:08)
[2020-08-09] MEDS: CEFTRIAXONE 1 GM in DEXTROSE 5%-WATER - 50 ML IVPB SCH (09:08)
[2020-08-09] MEDS: CHOLECALCIFEROL (VIT D3) 5000 UNITS (125 MCG) CAP PO SCH (09:09)
[2020-08-09] MEDS: BUDESONIDE/FORMETEROL FUMARATE 160/4.5 mcg INHALER IH SCH (09:09)
[2020-08-09] MEDS ORDERED: PT OWN MED DRAWER 7, Y5N ONE (11:48)
[2020-08-09] MEDS: REMDESIVIR 100 MG in SODIUM CHLORIDE 230 ML IVPB SCH (11:49)
[2020-08-09 13:10] VITALS: BP 149/74; PULSE 62; TEMP 98.1
== END 2020-08-09 14:30 | disposition home or self-care (01) | DRG 177 ==
LOC: JER 07:31 → JERBED 10:08 → J4S 21:08
PROVIDERS: ADMIT Internal Medicine; ATTEND Internal Medicine
PROC: XW13325 Transfusion of Convalescent Plasma (Nonautologous) into Peripheral Vein, Percutaneous Approach, New Technology Group 5 (ICD-10-PCS; principal; 2020-08-05)
PROC: XW033E5 Introduction of Remdesivir Anti-infective into Peripheral Vein, Percutaneous Approach, New Technology Group 5 (ICD-10-PCS; 2020-08-05)
DX: U07.1 COVID-19 (principal); J12.82 Pneumonia due to coronavirus disease 2019; N39.0 Urinary tract infection, site not specified; R09.02 Hypoxemia; R91.1 Solitary pulmonary nodule; J44.9 Chronic obstructive pulmonary disease, unspecified; F41.9 Anxiety disorder, unspecified; D72.819 Decreased white blood cell count, unspecified
CPT/HCPCS: 36415; 36430; 71045-TC-FY; 80053; 81003; 82248; 82550; 82728; 82803; 83605; 83615; 84484; 85025; 85027; 85379; 85610; 85730; 86140; 86769; 86850; 86900; 86901; 87040; 87070; 87086; 87186; 87205; 87804; 87899; 93005; 93010; 94761; 99285-25; C9399; C9803; P9017; U0003

== ENCOUNTER 2021-12-04 18:56 | Observation (INO) | payer OTHER ==
[2021-12-04 19:50] VITALS: BMI 20.5
[2021-12-04 20:54] LABS: EOS % 1.1 % (0-4.5); HEMATOCRIT 40.2 % (32.4-45.2); HEMOGLOBIN 13.8 GM/dL (10.7-15.3); MCH 32.1 pg (25.7-33.7); MCHC 34.4 g/dl (32.0-36.0); MEAN CELL VOLUME 93.5 fl (80-96); MEAN PLT VOLUME 7.7 fl (7.5-11.1); MONO % 7.1 % (3.8-10.2); NEUT % 72.8 % (42.8-82.8); PLATELET COUNT 227 10^3/uL (134-434); RDW 13.8 % (11.6-15.6); WHITE BLOOD COUNT 5.8 K/mm3 (4.0-10.0)
[2021-12-04] MEDS ORDERED: SODIUM CHLORIDE 0.9% 500 ML INFUS.BAG IV ONE (21:11)
[2021-12-04 21:23] LABS: CHLORIDE 98 mmol/L (98-107); SODIUM 133 mmol/L (136-145)
[2021-12-04 21:24] LABS: CALCIUM 8.8 mg/dL (8.5-10.1)
[2021-12-04 21:26] LABS: ALBUMIN 3.5 g/dl (3.4-5.0); ANION GAP 6 MMOL/L (8-16); BLOOD UREA NITROGEN 13.3 mg/dL (7-18); CO2 29 mmol/L (21-32); GLUCOSE,RANDOM 109 mg/dL (74-106); MAGNESIUM 2.3 mg/dL (1.8-2.4)
[2021-12-04 21:28] LABS: CREATININE 1.1 mg/dL (0.55-1.3); SGPT/ALT 25 U/L (13-61)
[2021-12-04 21:30] LABS: BILIRUBIN,TOTAL 0.4 mg/dL (0.2-1); TOT PROT 6.5 g/dl (6.4-8.2)
[2021-12-04 21:31] LABS: ALK PHOS 127 U/L (45-117)
[2021-12-05] MEDS ORDERED: ACETAMINOPHEN 325 MG TABLET (FP) PO PRN (00:19)
[2021-12-05] MEDS ORDERED: POLYETHYLENE GLYCOL (HEALTHYLAX) 3350 17 GM PACKET PO PRN (00:19)
[2021-12-05] MEDS ORDERED: ALBUTEROL SO4 HFA INHALER IH ONE (07:35)
[2021-12-05] MEDS: ALBUTEROL SO4 HFA INHALER IH SCH ×2 (07:41→14:01)
[2021-12-05 07:50] LABS: BLOOD UREA NITROGEN 12.7 mg/dL (7-18)
[2021-12-05 07:51] LABS: CALCIUM 8.8 mg/dL (8.5-10.1)
[2021-12-05 07:54] LABS: CREATININE 0.9 mg/dL (0.55-1.3)
[2021-12-05 09:02] LABS: BASO % 0.5 % (0-2.0); EOS % 1.2 % (0-4.5); HEMATOCRIT 39.9 % (32.4-45.2); HEMOGLOBIN 13.8 GM/dL (10.7-15.3); LYMPH % 26.6 % (8-40); MCH 32.4 pg (25.7-33.7); MCHC 34.5 g/dl (32.0-36.0); MEAN CELL VOLUME 93.9 fl (80-96); MONO % 7.1 % (3.8-10.2); NEUT % 64.6 % (42.8-82.8); PLATELET COUNT 214 10^3/uL (134-434); RBC 4.25 M/mm3 (3.60-5.2); RDW 13.8 % (11.6-15.6); WHITE BLOOD COUNT 4.8 K/mm3 (4.0-10.0)
[2021-12-05] MEDS ORDERED: PANTOPRAZOLE 40 MG TABLET PO ONE (09:29)
[2021-12-05] MEDS ORDERED: clonazePAM 0.5 MG TABLET ONE (09:29)
[2021-12-05] MEDS ORDERED: amLODIPine BESYLATE 5 MG TABLET (FP) ONE (09:30)
[2021-12-05] MEDS: clonazePAM 0.5 MG TABLET PO SCH (09:34)
[2021-12-05] MEDS: amLODIPine BESYLATE 5 MG TABLET (FP) PO SCH (09:34)
[2021-12-05] MEDS: PANTOPRAZOLE 40 MG TABLET PO SCH (09:35)
[2021-12-05] MEDS ORDERED: HYDROCHLOROTHIAZIDE 25 MG TABLET (FP) PO SCH (10:00)
[2021-12-05] MEDS: FLUTICASONE/UMECLIDIN/VILANTER(100-62.5-25 TRELEGY ELLIPTA) INAHLER IH SCH (10:37)
[2021-12-05 11:26] LABS: SGOT/AST 23 U/L (15-37)
[2021-12-06] MEDS ORDERED: MIRTAZAPINE 15 MG TABLET (FP) ONE (00:13)
[2021-12-06] MEDS: ALBUTEROL SO4 HFA INHALER IH SCH ×4 (00:19→22:21)
[2021-12-06] MEDS: MIRTAZAPINE 15 MG TABLET (FP) PO SCH ×2 (00:19→22:20)
[2021-12-06] MEDS: traZODone HCL 100 MG TABLET (FP) PO SCH ×2 (00:59→22:20)
[2021-12-06] MEDS: clonazePAM 0.5 MG TABLET PO SCH (09:37)
[2021-12-06] MEDS: amLODIPine BESYLATE 5 MG TABLET (FP) PO SCH (09:38)
[2021-12-06] MEDS: PANTOPRAZOLE 40 MG TABLET PO SCH (09:38)
[2021-12-06] MEDS: FLUTICASONE/UMECLIDIN/VILANTER(100-62.5-25 TRELEGY ELLIPTA) INAHLER IH SCH (10:22)
[2021-12-06] MEDS ORDERED: traZODone HCL 50 MG TABLET (FP) ONE (20:54)
[2021-12-07] MEDS: ALBUTEROL SO4 HFA INHALER IH SCH (07:57)
[2021-12-07 09:42] VITALS: BP 116/72; PULSE 67; TEMP 98
[2021-12-07] MEDS: amLODIPine BESYLATE 5 MG TABLET (FP) PO SCH (09:43)
[2021-12-07] MEDS: FLUTICASONE/UMECLIDIN/VILANTER(100-62.5-25 TRELEGY ELLIPTA) INAHLER IH SCH (09:43)
[2021-12-07] MEDS: PANTOPRAZOLE 40 MG TABLET PO SCH (09:43)
[2021-12-07] MEDS: clonazePAM 0.5 MG TABLET PO SCH (09:43)
== END 2021-12-07 14:51 | disposition home or self-care (01) ==
LOC: JER 18:56 → JERBED 12-05 00:15 → J4W 12-06 02:09
PROVIDERS: ADMIT Hospitalist; ATTEND Internal Medicine
PROC: 3E0337Z Introduction of Electrolytic and Water Balance Substance into Peripheral Vein, Percutaneous Approach (ICD-10-PCS; principal; 2021-12-05)
DX: J44.9 Chronic obstructive pulmonary disease, unspecified (principal); I10 Essential (primary) hypertension; K90.0 Celiac disease; F41.8 Other specified anxiety disorders; F41.0 Panic disorder [episodic paroxysmal anxiety]; Z91.018 Allergy to other foods
CPT/HCPCS: 36415; 70450-TC; 70551-TC; 72125-TC; 80048; 80053; 80307; 83735; 84484; 85025; 93005; 93010; 93225; 93226; 93306-TC; 93880-TC; 99285-25; C9803-CS; G0378; U0003; U0005

== ENCOUNTER 2023-10-26 12:46 | Observation (INO) | payer OTHER ==
[2023-10-26 13:48] VITALS: BMI 20.6
[2023-10-26 14:24] LABS: BASO % 0.4 % (0-2.0); EOS % 0.5 % (0-4.5); HEMATOCRIT 39.1 % (32.4-45.2); HEMOGLOBIN 13.8 GM/dL (10.7-15.3); LYMPH % 12.5 % (8-40); MCH 31.6 pg (25.7-33.7); MCHC 35.3 g/dl (32.0-36.0); MEAN CELL VOLUME 89.6 fl (80-96); MEAN PLT VOLUME 7.5 fl (7.5-11.1); NEUT % 78.6 % (42.8-82.8); PLATELET COUNT 313 10^3/uL (134-434); RBC 4.37 M/mm3 (3.60-5.2); RDW 13.3 % (11.6-15.6)
[2023-10-26 15:02] LABS: POTASSIUM 3.9 mmol/L (3.5-5.1)
[2023-10-26] MEDS: SODIUM CHLORIDE 0.9% 500 ML INFUS.BAG IV ONE (15:03)
[2023-10-26 15:04] LABS: ALBUMIN 3.9 g/dl (3.4-5.0); BLOOD UREA NITROGEN 27.8 mg/dL (7-18); CALCIUM 9.5 mg/dL (8.5-10.1); MAGNESIUM 2.2 mg/dL (1.8-2.4)
[2023-10-26 15:07] LABS: CREATININE 1.1 mg/dL (0.55-1.3)
[2023-10-26 15:09] LABS: BILIRUBIN,TOTAL 0.5 mg/dL (0.2-1); TOT PROT 7.3 g/dl (6.4-8.2)
[2023-10-26 15:48] LABS: EPI CELLS 10 /uL (0-25.1); HYALINE CASTS 0 /uL (0-3.1); PH,URINE 5.5 (5.0-8.0); URINE APPEARANCE CLEAR; URINE BACTERIA 104 /uL (0-1359); URINE BILIRUBIN NEGATIVE (NEGATIVE); URINE COLOR YELLOW; URINE GLUCOSE (UA) NEGATIVE (NEGATIVE); URINE KETONE NEGATIVE (NEGATIVE); URINE LEUK ESTERASE 1+ (NEGATIVE); URINE NITRITE NEGATIVE (NEGATIVE); URINE PROTEIN NEGATIVE (NEGATIVE); URINE RBC 12 /uL (0-23.9); URINE UROBILINOGEN 0.2 mg/dL (0.2-1.0); URINE WBC 40 /uL (0-25.8)
[2023-10-26] MEDS ORDERED: ACETAMINOPHEN 325 MG TABLET (FP) PO PRN (16:50)
[2023-10-26] MEDS ORDERED: POLYETHYLENE GLYCOL (HEALTHYLAX) 3350 17 GM PACKET PO PRN (16:50)
[2023-10-26] MEDS ORDERED: ALBUTEROL SO4 HFA INHALER IH PRN (16:50)
[2023-10-26] MEDS ORDERED: MIRTAZAPINE 15 MG TABLET (FP) ONE (22:05)
[2023-10-26] MEDS ORDERED: HEPARIN NA (PORCINE) 5,000 UNITS/ML 1ML VIAL ONE (22:06)
[2023-10-26] MEDS ORDERED: traZODone HCL 100 MG TABLET (FP) ONE (22:06)
[2023-10-26] MEDS: traZODone HCL 100 MG TABLET (FP) PO SCH (22:26)
[2023-10-26] MEDS: HEPARIN NA (PORCINE) 5,000 UNITS/ML 1ML VIAL SQ SCH (22:26)
[2023-10-26] MEDS: MIRTAZAPINE 15 MG TABLET (FP) PO SCH (22:27)
[2023-10-27 06:45] LABS: BASO % 0.3 % (0-2.0); EOS % 1.4 % (0-4.5); HEMATOCRIT 38.7 % (32.4-45.2); HEMOGLOBIN 13.4 GM/dL (10.7-15.3); LYMPH % 25.3 % (8-40); MCH 31.2 pg (25.7-33.7); MCHC 34.5 g/dl (32.0-36.0); MEAN CELL VOLUME 90.3 fl (80-96); MEAN PLT VOLUME 7.6 fl (7.5-11.1); MONO % 12.7 % (3.8-10.2); NEUT % 60.3 % (42.8-82.8); PLATELET COUNT 293 10^3/uL (134-434); RBC 4.29 M/mm3 (3.60-5.2); RDW 13.1 % (11.6-15.6); WHITE BLOOD COUNT 4.5 K/mm3 (4.0-10.0)
[2023-10-27 06:55] LABS: POTASSIUM 3.8 mmol/L (3.5-5.1)
[2023-10-27 07:02] LABS: CHOLESTEROL 162 mg/dL (50-200)
[2023-10-27 07:03] LABS: LDL CHOLESTEROL (ONLY SJRH) 101 mg/dL (5-100)
[2023-10-27 07:04] LABS: HDL CHOLESTEROL 50 mg/dL (40-60)
[2023-10-27 07:10] LABS: ALBUMIN 3.3 g/dl (3.4-5.0); BLOOD UREA NITROGEN 19.2 mg/dL (7-18); CALCIUM 9.5 mg/dL (8.5-10.1)
[2023-10-27 07:15] LABS: TOT PROT 6.3 g/dl (6.4-8.2)
[2023-10-27 07:17] LABS: BILIRUBIN,TOTAL 0.4 mg/dL (0.2-1)
[2023-10-27] MEDS ORDERED: clonazePAM 0.5 MG TABLET PO SCH (10:00)
[2023-10-27] MEDS ORDERED: PANTOPRAZOLE 40 MG TABLET PO ONE (10:40)
[2023-10-27] MEDS ORDERED: HYDROCHLOROTHIAZIDE 25 MG TABLET (FP) ONE (10:40)
[2023-10-27] MEDS ORDERED: clonazePAM 2 MG TABLET ONE (10:41)
[2023-10-27] MEDS: HYDROCHLOROTHIAZIDE 25 MG TABLET (FP) PO SCH (10:52)
[2023-10-27] MEDS: amLODIPine BESYLATE 5 MG TABLET (FP) PO SCH (10:53)
[2023-10-27] MEDS: clonazePAM 0.5 MG TABLET PO SCH (10:53)
[2023-10-27] MEDS: PANTOPRAZOLE 40 MG TABLET PO SCH (10:53)
[2023-10-27] MEDS ORDERED: HEPARIN NA (PORCINE) 5,000 UNITS/ML 1ML VIAL ONE (11:36)
[2023-10-27] MEDS: FLUTICASONE/UMECLIDIN/VILANTER(100-62.5-25 TRELEGY ELLIPTA) INAHLER IH SCH (11:40)
[2023-10-28 12:57] VITALS: BP 131/75; PULSE 69; RESP 17; TEMP 98.1
== END 2023-10-28 15:59 | disposition home or self-care (01) ==
LOC: JER 12:46 → JERBED 16:07 → J4S 10-27 14:23
PROVIDERS: ADMIT Internal Medicine; ATTEND Internal Medicine
PROC: 3E023GC Introduction of Other Therapeutic Substance into Muscle, Percutaneous Approach (ICD-10-PCS; principal; 2023-10-26)
PROC: 3E0337Z Introduction of Electrolytic and Water Balance Substance into Peripheral Vein, Percutaneous Approach (ICD-10-PCS; 2023-10-26)
DX: R55 Syncope and collapse (principal); E87.1 Hypo-osmolality and hyponatremia; I10 Essential (primary) hypertension; I65.21 Occlusion and stenosis of right carotid artery; W18.39XA Other fall on same level, initial encounter; Y93.89 Activity, other specified; Y92.481 Parking lot as the place of occurrence of the external cause; Z91.018 Allergy to other foods; F41.8 Other specified anxiety disorders; F41.0 Panic disorder [episodic paroxysmal anxiety]; J44.9 Chronic obstructive pulmonary disease, unspecified; K90.0 Celiac disease; F17.210 Nicotine dependence, cigarettes, uncomplicated
CPT/HCPCS: 0241U-QW; 36415; 70450-TC; 71045-TC-FY; 71250-TC; 72170-TC-FY; 80053; 80061; 81003; 83735; 84443; 84484; 85025; 87086; 93005; 93010; 93306-TC; 93880-TC; 96360; 96372; 99285-25; G0378; J1644

== ENCOUNTER 2024-03-04 20:31 | Emergency (ER) | payer OTHER ==
[2024-03-04 20:42] VITALS: BP 130/66; PULSE 92; RESP 18; TEMP 98.4; BMI 20.7
[2024-03-04] MEDS ORDERED: LIDOCAINE 4% PATCH TP ONE (21:56)
[2024-03-04] MEDS ORDERED: ACETAMINOPHEN 325 MG TABLET (FP) ONE (21:56)
[2024-03-04] MEDS: ACETAMINOPHEN 325 MG TABLET (FP) PO ONE (22:00)
[2024-03-04] MEDS: LIDOCAINE 4% PATCH TP ONE (22:00)
[2024-03-04] MEDS: LIDOCAINE PATCH REMOVAL MC SCH (22:00)
[2024-03-04 22:40] LABS: BASO % 0.6 % (0-2.0); EOS % 0.6 % (0-4.5); HEMATOCRIT 40.5 % (32.4-45.2); HEMOGLOBIN 13.8 GM/dL (10.7-15.3); LYMPH % 12.6 % (8-40); MCH 30.7 pg (25.7-33.7); MEAN CELL VOLUME 90.1 fl (80-96); MEAN PLT VOLUME 7.7 fl (7.5-11.1); MONO % 8.6 % (3.8-10.2); NEUT % 77.6 % (42.8-82.8); PLATELET COUNT 300 10^3/uL (134-434); RBC 4.49 M/mm3 (3.60-5.2); RDW 13.5 % (11.6-15.6); WHITE BLOOD COUNT 8.6 K/mm3 (4.0-10.0)
[2024-03-04 23:08] LABS: POTASSIUM 4.1 mmol/L (3.5-5.1)
[2024-03-04 23:10] LABS: CALCIUM 9.5 mg/dL (8.5-10.1)
[2024-03-04 23:11] LABS: ALBUMIN 3.9 g/dl (3.4-5.0); BLOOD UREA NITROGEN 19.7 mg/dL (7-18)
[2024-03-04 23:14] LABS: CREATININE 1.1 mg/dL (0.55-1.3)
[2024-03-04 23:16] LABS: BILIRUBIN,TOTAL 0.4 mg/dL (0.2-1); TOT PROT 7.2 g/dl (6.4-8.2)
== END 2024-03-04 23:46 | disposition home or self-care (01) ==
LOC: JER 20:31
DX: S30.0XXA Contusion of lower back and pelvis, initial encounter (principal); Y04.0XXA Assault by unarmed brawl or fight, initial encounter
CPT/HCPCS: 36415; 73502-TC-RT-FY; 80053; 85025; 99284-25

== ENCOUNTER → 2024-05-09 | Day surgery (SDC) | payer OTHER | END | disposition home or self-care (01) | LOC: JRADIR 09:36 | PROVIDERS: ATTEND Internal Medicine | PROC: 0G9K3ZX Drainage of Thyroid Gland, Percutaneous Approach, Diagnostic (ICD-10-PCS; principal; 2024-05-09) | DX: E04.1 Nontoxic single thyroid nodule (principal) | CPT/HCPCS: 10005; 76942; 88173; 88305-TC ==

== ENCOUNTER 2024-10-08 07:13 | Inpatient (IN) | payer OTHER ==
[2024-10-08] MEDS ORDERED: MORPHINE SULFATE 2 MG/ML SYRINGE ONE (08:59)
[2024-10-08] MEDS ORDERED: ACETAMINOPHEN INJECTION 100 ML ONE (09:00)
[2024-10-08 09:04] LABS: HEMATOCRIT 39.7 % (34.1-44.9); HEMOGLOBIN 13.1 g/dL (11.2-15.7); MEAN CELL VOLUME 90.8 fl (79.4-94.8); MEAN PLT VOLUME 10.4 fl (9.4-12.3); PLATELET COUNT 154 x10^3/uL (182-369); RDW 13.3 % (12.4-16.6)
[2024-10-08] MEDS: LACTATED RINGERS SOLUTION 1000 ML INFUS.BAG IV ONE (09:09)
[2024-10-08] MEDS: ACETAMINOPHEN 1000 MG/100 ML BAG IVPB ONE (09:09)
[2024-10-08] MEDS: morphine CARPU-JECT 4 MG/1 ML DISP.SYRIN IVPUSH ONE (09:09)
[2024-10-08 09:45] LABS: ALBUMIN 3.6 g/dl (3.4-5.0); BLOOD UREA NITROGEN 23.5 mg/dL (7-18)
[2024-10-08] MEDS ORDERED: ONDANSETRON 4 MG/2 ML VIAL ONE (09:45)
[2024-10-08 09:47] LABS: MAGNESIUM 2.5 mg/dL (1.8-2.4)
[2024-10-08] MEDS: ONDANSETRON 4 MG/2 ML VIAL IVPUSH ONE ×2 (09:48→20:01)
[2024-10-08 09:49] LABS: PHOSPHOROUS 3.7 mg/dL (2.5-4.9)
[2024-10-08 09:50] LABS: BILIRUBIN,TOTAL 0.7 mg/dL (0.2-1); TOT PROT 6.4 g/dl (6.4-8.2)
[2024-10-08 10:04] LABS: INR 0.93 (0.83-1.09); PROTHROMBIN TIME (PATIENT) 10.1 SEC (9.7-13.0)
[2024-10-08 10:07] LABS: ACTIVATED PTT 23.8 SECONDS (25.2-36.5)
[2024-10-08] MEDS ORDERED: ALBUTEROL SO4 2.5/IPRATROPIUM 0.5 INH SOL 3 ML VIAL.NEB. NEB PRN (13:46)
[2024-10-08] MEDS ORDERED: BISACODYL 10 MG SUPP.RECT PR PRN (13:46)
[2024-10-08 13:54] LABS: EPI CELLS >36 /uL (0-25.1); HYALINE CASTS 1 /uL (0-3.1); URINE APPEARANCE CLOUDY; URINE BACTERIA 557 /uL (0-1359); URINE BILIRUBIN NEGATIVE (NEGATIVE); URINE COLOR YELLOW; URINE GLUCOSE (UA) NEGATIVE (NEGATIVE); URINE KETONE NEGATIVE (NEGATIVE); URINE LEUK ESTERASE 2+ (NEGATIVE); URINE NITRITE NEGATIVE (NEGATIVE); URINE PROTEIN 1+ (NEGATIVE); URINE RBC 24 /uL (0-23.9); URINE UROBILINOGEN 0.2 mg/dL (0.2-1.0); URINE WBC 234 /uL (0-25.8)
[2024-10-08] MEDS ORDERED: ALBUTEROL SO4 HFA INHALER IH ONE ×2 (14:06→23:22)
[2024-10-08] MEDS ORDERED: CEFTRIAXONE 1 G/50 ML PREMIX 50 ML IVPB ONE (14:06)
[2024-10-08] MEDS: CEFTRIAXONE 1 G/50 ML PREMIX 50 ML IVPB SCH (14:11)
[2024-10-08] MEDS: SODIUM CHLORIDE 1,000 ML IV SCH (14:11)
[2024-10-08] MEDS: ALBUTEROL SO4 HFA INHALER IH SCH (14:12)
[2024-10-08] MEDS ORDERED: ACETAMINOPHEN 325 MG TABLET (FP) ONE (19:57)
[2024-10-08] MEDS: ACETAMINOPHEN 325 MG TABLET (FP) PO PRN (20:00)
[2024-10-08] MEDS ORDERED: ATORVASTATIN CA 10 MG TABLET (FP) ONE (22:56)
[2024-10-08] MEDS ORDERED: MIRTAZAPINE 15 MG TABLET (FP) ONE (22:57)
[2024-10-08] MEDS ORDERED: HEPARIN NA (PORCINE) 5,000 UNITS/ML 1ML VIAL ONE (22:57)
[2024-10-08] MEDS: ATORVASTATIN CA 10 MG TABLET (FP) PO SCH (23:08)
[2024-10-08] MEDS: MIRTAZAPINE 15 MG TABLET (FP) PO SCH (23:08)
[2024-10-08] MEDS: HEPARIN NA (PORCINE) 5,000 UNITS/ML 1ML VIAL SQ SCH (23:08)
[2024-10-09 06:37] LABS: BASOPHILS # 0.04 x10^3/uL (0.01-0.08); MONOCYTE # 0.11 x10^3/uL (0.24-0.86); RDW 13.2 % (12.4-16.6)
[2024-10-09 06:39] LABS: ABSOLUTE IMMATURE GRANULOCYTES 0.32 x10^3/uL (0.0-0.031); EOSINOPHIL % 1.2 % (0.7-5.8); EOSINOPHILS # 0.03 x10^3/uL (0.04-0.36); HEMATOCRIT 38.2 % (34.1-44.9); HEMOGLOBIN 12.5 g/dL (11.2-15.7); MCHC 32.7 g/dl (32.2-35.5); MEAN CELL VOLUME 90.5 fl (79.4-94.8); MEAN PLT VOLUME 10.8 fl (9.4-12.3); MONOCYTE % 4.3 % (4.7-12.5); PLATELET COUNT 125 x10^3/uL (182-369)
[2024-10-09 06:56] LABS: POTASSIUM 3.4 mmol/L (3.5-5.1)
[2024-10-09 07:10] LABS: ALBUMIN 3.2 g/dl (3.4-5.0); BLOOD UREA NITROGEN 20.4 mg/dL (7-18)
[2024-10-09 07:11] LABS: BILIRUBIN,TOTAL 0.6 mg/dL (0.2-1); TOT PROT 6.2 g/dl (6.4-8.2)
[2024-10-09] MEDS ORDERED: PANTOPRAZOLE 40 MG TABLET PO ONE (08:47)
[2024-10-09] MEDS ORDERED: HEPARIN NA (PORCINE) 5,000 UNITS/ML 1ML VIAL ONE (08:47)
[2024-10-09] MEDS ORDERED: CEFTRIAXONE 1 G/50 ML PREMIX 50 ML IVPB ONE (08:47)
[2024-10-09] MEDS: PANTOPRAZOLE 40 MG TABLET PO SCH (10:35)
[2024-10-09] MEDS: FLUTICASONE/UMECLIDIN/VILANTER(100-62.5-25 TRELEGY ELLIPTA) INAHLER IH SCH (11:35)
[2024-10-09] MEDS ORDERED: ACETAMINOPHEN 325 MG TABLET (FP) ONE (13:47)
[2024-10-10] MEDS: clonazePAM 0.5 MG TABLET PO PRN (13:05)
[2024-10-10] MEDS ORDERED: BISACODYL 10 MG SUPP.RECT PR PRN (23:39)
[2024-10-10] MEDS ORDERED: ALBUTEROL SO4 2.5/IPRATROPIUM 0.5 INH SOL 3 ML VIAL.NEB. NEB PRN (23:39)
[2024-10-11] MEDS: ACETAMINOPHEN 325 MG TABLET (FP) PO PRN (00:06)
[2024-10-11] MEDS: SODIUM CHLORIDE 1,000 ML IV SCH (02:14)
[2024-10-11] MEDS ORDERED: ALBUTEROL SO4 HFA INHALER IH PRN (06:00)
[2024-10-11 08:16] LABS: HEMOGLOBIN 11.1 g/dL (11.2-15.7)
[2024-10-11 08:18] LABS: MCHC 33.6 g/dl (32.2-35.5); MEAN CELL VOLUME 89.7 fl (79.4-94.8); MEAN PLT VOLUME 10.8 fl (9.4-12.3); PLATELET COUNT 126 x10^3/uL (182-369); RDW 12.9 % (12.4-16.6)
[2024-10-11 08:29] LABS: POTASSIUM 3.3 mmol/L (3.5-5.1)
[2024-10-11 08:35] LABS: BLOOD UREA NITROGEN 33.8 mg/dL (7-18); CALCIUM 8.3 mg/dL (8.5-10.1); MAGNESIUM 1.7 mg/dL (1.8-2.4)
[2024-10-11 08:37] LABS: CREATININE 2.3 mg/dL (0.55-1.3)
[2024-10-11 08:40] LABS: BILIRUBIN,TOTAL 0.6 mg/dL (0.2-1); TOT PROT 5.7 g/dl (6.4-8.2)
[2024-10-11] MEDS: PANTOPRAZOLE 40 MG TABLET PO SCH (09:21)
[2024-10-11] MEDS: HEPARIN NA (PORCINE) 5,000 UNITS/ML 1ML VIAL SQ SCH (09:22)
[2024-10-11] MEDS: CEFTRIAXONE 1 G/50 ML PREMIX 50 ML IVPB SCH (09:22)
[2024-10-11] MEDS ORDERED: POTASSIUM CHLORIDE TABS 20 MEQ TABLET.ER (FP) PO SCH (13:45)
[2024-10-11] MEDS: FLUTICASONE/UMECLIDIN/VILANTER(100-62.5-25 TRELEGY ELLIPTA) INAHLER IH SCH (13:58)
[2024-10-11] MEDS: MAGNESIUM SULF 50% (8.12 MEQ/2 ML-1 GM VIAL) IVPB ONE (14:18)
[2024-10-11] MEDS: POTASSIUM CHLORIDE TABS 20 MEQ TABLET.ER (FP) PO ONE (14:19)
[2024-10-11] MEDS: LACTOBACILLUS ACIDOPHILUS 1 TABLET PO SCH (14:19)
[2024-10-11] MEDS: ONDANSETRON 4 MG/2 ML VIAL IVPUSH PRN (15:11)
[2024-10-11] MEDS: MIRTAZAPINE 15 MG TABLET (FP) PO SCH (21:15)
[2024-10-11] MEDS: ATORVASTATIN CA 10 MG TABLET (FP) PO SCH (21:15)
[2024-10-12] MEDS: ACETAMINOPHEN 1000 MG/100 ML BAG IVPB PRN (08:36)
[2024-10-12 08:57] LABS: INR 1.1 (0.83-1.09)
[2024-10-12 12:00] LABS: HEMATOCRIT 34.6 % (34.1-44.9); HEMOGLOBIN 11.6 g/dL (11.2-15.7); MCHC 33.5 g/dl (32.2-35.5); MEAN CELL VOLUME 88.9 fl (79.4-94.8); PLATELET COUNT 154 x10^3/uL (182-369); RDW 13.1 % (12.4-16.6)
[2024-10-12] MEDS: metroNIDAZOLE 250 MG TABLET PO SCH (14:30)
[2024-10-12] MEDS: oxyCODONE HCL 5 MG TABLET PO PRN (18:44)
[2024-10-13 08:40] LABS: HEMATOCRIT 30.7 % (34.1-44.9); HEMOGLOBIN 10.2 g/dL (11.2-15.7); MCHC 33.2 g/dl (32.2-35.5); MEAN CELL VOLUME 88.7 fl (79.4-94.8); RDW 13.2 % (12.4-16.6)
[2024-10-13 09:00] LABS: CALCIUM 8.4 mg/dL (8.5-10.1)
[2024-10-13 09:01] LABS: ALBUMIN 2.7 g/dl (3.4-5.0); BLOOD UREA NITROGEN 33.3 mg/dL (7-18)
[2024-10-13 09:04] LABS: CREATININE 3.4 mg/dL (0.55-1.3)
[2024-10-13 09:06] LABS: BILIRUBIN,TOTAL 0.3 mg/dL (0.2-1); TOT PROT 5.4 g/dl (6.4-8.2)
[2024-10-13 10:33] LABS: MAGNESIUM 2.1 mg/dL (1.8-2.4)
[2024-10-13] MEDS: POTASSIUM CHLORIDE TABS 20 MEQ TABLET.ER (FP) PO ONE (11:01)
[2024-10-13] MEDS: KCL 10 MEQ IVPB 10 MEQ/100 ML INFUS.BAG IVPB SCH (11:02)
[2024-10-13] MEDS: MAGNESIUM 2GM/50ML STERILE WATER IVPB IVPB ONE (14:54)
[2024-10-13] MEDS: MAGNESIUM OXIDE 400 MG TABLET (FP) PO SCH (14:54)
[2024-10-14] MEDS: DEXTROSE 5%-0.45% SALINE 1,000 ML IV SCH (00:09)
[2024-10-14 09:49] LABS: POTASSIUM 3.1 mmol/L (3.5-5.1)
[2024-10-14 09:50] LABS: CALCIUM 8.4 mg/dL (8.5-10.1)
[2024-10-14 09:51] LABS: ALBUMIN 2.7 g/dl (3.4-5.0); BLOOD UREA NITROGEN 26.1 mg/dL (7-18)
[2024-10-14 09:54] LABS: CREATININE 3.5 mg/dL (0.55-1.3)
[2024-10-14 09:55] LABS: BILIRUBIN,TOTAL 0.3 mg/dL (0.2-1)
[2024-10-14 09:56] LABS: TOT PROT 5.4 g/dl (6.4-8.2)
[2024-10-14] MEDS: POTASSIUM CHLORIDE 10 MEQ in SODIUM CHLORIDE 1,000 ML IV SCH (15:42)
[2024-10-14] MEDS: POTASSIUM CHLORIDE ORAL LIQUID 20 MEQ/15 ML PO ONE (15:50)
[2024-10-14 18:25] LABS: URINE APPEARANCE CLEAR; URINE BILIRUBIN NEGATIVE (NEGATIVE); URINE COLOR YELLOW; URINE GLUCOSE (UA) NEGATIVE (NEGATIVE); URINE KETONE NEGATIVE (NEGATIVE); URINE LEUK ESTERASE NEGATIVE (NEGATIVE); URINE NITRITE NEGATIVE (NEGATIVE); URINE PROTEIN NEGATIVE (NEGATIVE); URINE UROBILINOGEN 0.2 mg/dL (0.2-1.0)
[2024-10-15 08:38] LABS: POTASSIUM 3.5 mmol/L (3.5-5.1)
[2024-10-15 08:47] LABS: CREATININE 3.1 mg/dL (0.55-1.3)
[2024-10-15 08:48] LABS: ALBUMIN 2.5 g/dl (3.4-5.0); CALCIUM 8.5 mg/dL (8.5-10.1)
[2024-10-15 08:49] LABS: BILIRUBIN,TOTAL 0.3 mg/dL (0.2-1)
[2024-10-15 08:54] LABS: TOT PROT 4.8 g/dl (6.4-8.2)
[2024-10-15 18:07] VITALS: BMI 21.0
[2024-10-15] MEDS: oxyCODONE HCL 5 MG TABLET PO PRN (18:48)
[2024-10-16 01:42] VITALS: RESP 18
[2024-10-16] MEDS: ACETAMINOPHEN 1000 MG/100 ML BAG IVPB PRN (13:25)
[2024-10-16 16:30] LABS: ABSOLUTE IMMATURE GRANULOCYTES 0.41 x10^3/uL (0.0-0.031); BASOPHILS # 0.02 x10^3/uL (0.01-0.08); EOSINOPHIL % 0.2 % (0.7-5.8); EOSINOPHILS # 0.02 x10^3/uL (0.04-0.36); HEMATOCRIT 30.8 % (34.1-44.9); HEMOGLOBIN 10.1 g/dL (11.2-15.7); MCHC 32.8 g/dl (32.2-35.5); MEAN CELL VOLUME 91.1 fl (79.4-94.8); MEAN PLT VOLUME 10.3 fl (9.4-12.3); MONOCYTE # 0.69 x10^3/uL (0.24-0.86); MONOCYTE % 6.6 % (4.7-12.5); PLATELET COUNT 214 x10^3/uL (182-369); RDW 13.7 % (12.4-16.6)
[2024-10-16 16:50] LABS: POTASSIUM 3.3 mmol/L (3.5-5.1)
[2024-10-16 16:53] LABS: ALBUMIN 2.4 g/dl (3.4-5.0); BLOOD UREA NITROGEN 22.3 mg/dL (7-18)
[2024-10-16 16:56] LABS: CREATININE 2.8 mg/dL (0.55-1.3)
[2024-10-16 16:57] LABS: BILIRUBIN,TOTAL 0.2 mg/dL (0.2-1); TOT PROT 4.6 g/dl (6.4-8.2)
[2024-10-17 09:47] LABS: BASOPHILS # 0.04 x10^3/uL (0.01-0.08); EOSINOPHIL % 0.2 % (0.7-5.8); EOSINOPHILS # 0.02 x10^3/uL (0.04-0.36); HEMATOCRIT 34.2 % (34.1-44.9); HEMOGLOBIN 11.2 g/dL (11.2-15.7); MCHC 32.7 g/dl (32.2-35.5); MEAN CELL VOLUME 90.2 fl (79.4-94.8); MONOCYTE # 0.49 x10^3/uL (0.24-0.86); MONOCYTE % 4.5 % (4.7-12.5); PLATELET COUNT 244 x10^3/uL (182-369); RDW 13.7 % (12.4-16.6)
[2024-10-17 10:17] LABS: ALBUMIN 2.7 g/dl (3.4-5.0); BLOOD UREA NITROGEN 21.9 mg/dL (7-18); CALCIUM 8.4 mg/dL (8.5-10.1)
[2024-10-17 10:20] LABS: CREATININE 2.7 mg/dL (0.55-1.3)
[2024-10-17 10:21] LABS: BILIRUBIN,TOTAL 0.4 mg/dL (0.2-1); TOT PROT 5.2 g/dl (6.4-8.2)
[2024-10-17] MEDS: POTASSIUM CHLORIDE ORAL LIQUID 20 MEQ/15 ML PO ONE (13:09)
[2024-10-17] MEDS: KCL 10 MEQ IVPB 10 MEQ/100 ML INFUS.BAG IVPB SCH (13:09)
[2024-10-18 08:26] LABS: POTASSIUM 3.4 mmol/L (3.5-5.1)
[2024-10-18 08:36] LABS: ALBUMIN 2.6 g/dl (3.4-5.0); BLOOD UREA NITROGEN 25.8 mg/dL (7-18); CALCIUM 8.2 mg/dL (8.5-10.1)
[2024-10-18 08:37] LABS: MAGNESIUM 1.7 mg/dL (1.8-2.4)
[2024-10-18 08:40] LABS: CREATININE 2.5 mg/dL (0.55-1.3)
[2024-10-18 08:41] LABS: BILIRUBIN,TOTAL 0.4 mg/dL (0.2-1); TOT PROT 4.8 g/dl (6.4-8.2)
[2024-10-18] MEDS: POTASSIUM CHLORIDE ORAL LIQUID 20 MEQ/15 ML PO ONE (10:39)
[2024-10-18] MEDS: MAGNESIUM SULF 50% (8.12 MEQ/2 ML-1 GM VIAL) IVPB ONE (11:44)
[2024-10-18] MEDS: POTASSIUM CHLORIDE 10 MEQ in SODIUM CHLORIDE 0.45% 1,000 ML IVPB SCH (13:02)
[2024-10-18] MEDS: HEPARIN NA (PORCINE) 5,000 UNITS/ML 1ML VIAL SQ SCH (22:22)
[2024-10-19 08:39] LABS: BASOPHILS # 0.04 x10^3/uL (0.01-0.08); MEAN PLT VOLUME 10.5 fl (9.4-12.3)
[2024-10-19 08:41] LABS: ABSOLUTE IMMATURE GRANULOCYTES 0.19 x10^3/uL (0.0-0.031); EOSINOPHIL % 0.2 % (0.7-5.8); EOSINOPHILS # 0.02 x10^3/uL (0.04-0.36); HEMATOCRIT 32.9 % (34.1-44.9); HEMOGLOBIN 10.6 g/dL (11.2-15.7); MCHC 32.2 g/dl (32.2-35.5); MONOCYTE # 0.57 x10^3/uL (0.24-0.86); MONOCYTE % 6.1 % (4.7-12.5); PLATELET COUNT 284 x10^3/uL (182-369); RDW 14.1 % (12.4-16.6)
[2024-10-19 09:03] LABS: POTASSIUM 3.4 mmol/L (3.5-5.1)
[2024-10-19 09:06] LABS: ALBUMIN 2.6 g/dl (3.4-5.0); BLOOD UREA NITROGEN 26.3 mg/dL (7-18)
[2024-10-19 09:09] LABS: CREATININE 2.2 mg/dL (0.55-1.3)
[2024-10-19 09:10] LABS: BILIRUBIN,TOTAL 0.3 mg/dL (0.2-1); TOT PROT 4.8 g/dl (6.4-8.2)
[2024-10-19] MEDS ORDERED: POTASSIUM CHLORIDE ORAL LIQUID 20 MEQ/15 ML PO ONE (14:00)
[2024-10-19] MEDS: POTASSIUM CHLORIDE ORAL LIQUID 20 MEQ/15 ML PO ONE (17:16)
[2024-10-20 06:54] VITALS: PULSE 65
[2024-10-20 09:53] LABS: POTASSIUM 3.3 mmol/L (3.5-5.1)
[2024-10-20 09:55] LABS: CALCIUM 8.2 mg/dL (8.5-10.1)
[2024-10-20 09:56] LABS: ALBUMIN 2.6 g/dl (3.4-5.0)
[2024-10-20 10:00] LABS: BILIRUBIN,TOTAL 0.4 mg/dL (0.2-1); CREATININE 2.1 mg/dL (0.55-1.3)
[2024-10-20 10:12] LABS: BLOOD UREA NITROGEN 23.5 mg/dL (7-18)
[2024-10-20] MEDS: POTASSIUM CHLORIDE ORAL LIQUID 20 MEQ/15 ML PO ONE (11:56)
[2024-10-20] MEDS: CEFTRIAXONE 1 G/50 ML PREMIX 50 ML IVPB SCH (11:56)
[2024-10-20 15:58] VITALS: BP 136/78; TEMP 98.1
== END 2024-10-20 15:23 | DRG 562 ==
LOC: JER 07:13 → JERBED 11:46 → J4W 10-09 18:39 → J8W 10-10 23:37 → OBSVTOIN 10-13 10:25
PROVIDERS: ADMIT Internal Medicine; ATTEND Internal Medicine
PROC: 0PSFXZZ Reposition Right Humeral Shaft, External Approach (ICD-10-PCS; principal; 2024-10-12)
DX: S42.301A Unspecified fracture of shaft of humerus, right arm, initial encounter for closed fracture (principal); E43 Unspecified severe protein-calorie malnutrition; C34.90 Malignant neoplasm of unspecified part of unspecified bronchus or lung; N39.0 Urinary tract infection, site not specified; K57.92 Diverticulitis of intestine, part unspecified, without perforation or abscess without bleeding; N17.9 Acute kidney failure, unspecified; K52.1 Toxic gastroenteritis and colitis; J44.9 Chronic obstructive pulmonary disease, unspecified; E87.6 Hypokalemia; E78.5 Hyperlipidemia, unspecified; D70.9 Neutropenia, unspecified; I10 Essential (primary) hypertension; R55 Syncope and collapse; W19.XXXA Unspecified fall, initial encounter; Y93.89 Activity, other specified; Y92.009 Unspecified place in unspecified non-institutional (private) residence as the place of occurrence of the external cause; Y99.8 Other external cause status; T45.1X5A Adverse effect of antineoplastic and immunosuppressive drugs, initial encounter; Z68.21 Body mass index [BMI] 21.0-21.9, adult
CPT/HCPCS: 36415; 70450-TC; 71045-TC-FY; 72125-TC; 72170-TC-FY; 73030-TC-RT-FY; 73060-TC-RT-FY; 74176-TC; 76775-TC; 80053; 81003; 82436; 82570; 83690; 83735; 83993; 84100; 84133; 84300; 85025; 85027; 85610; 85730; 86140; 86850; 86900; 86901; 87045; 87046; 87086; 87186; 87209; 87324; 87449; 87635; 93005; 93010; 93306-TC; 97116-GP; 97162-GP; 99285-25; G0378; J0131; J1644